=== PATIENT | male | born 1975 | race Caucasian/White ===

== ENCOUNTER 2017-12-19 19:54 | Inpatient (IN) ==
[2017-12-19] MEDS ORDERED: Sod Chloride 0.9% Inj 1,000 ML IV.SIG ONE ×3 (21:08→22:19)
--- NOTE | 2017-12-19 21:15 | ED ---
HPI General Chief Complaint: Nausea/Vomiting/Diarrhea Stated Complaint: NAUSEA/VOMITING/RT HAND SWELLING [id number] Time Seen by Provider: 12/19/17 20:50 Source: patient Mode of arrival: ambulatory Limitations: no limitations History of Present Illness HPI Narrative: The patient is a 42-year-old male who presents to the emergency department via private vehicle for multiple complaints. The patient states he was sick last week, had a productive cough at that time and was seen by his physician. The patient states he had a chest x-ray obtained that was negative and was advised that he would be okay. The patient did have decreased appetite at that time and had not been eating well. The patient then went on vacation, he is from [place], and came to [place] several days ago. The patient notes increasing symptoms including diaphoresis, chills, subjective fever, dry nonproductive cough, and nausea. The patient was at a restaurant [facility] where he had nausea and one episode of vomiting. He denies any diarrhea or abdominal pain. He denies any dysuria, frequency, or urgency. He also complains of bruising over the lateral aspect of the right hand. He cannot recall any trauma to the affected area. MD complaint: malaise and weakness Temperature Source: subjective Associated symptoms: chills, myalgias, cough, nausea and vomiting Relieving factors: nothing Exacerbating factors: nothing Treatments prior to arrival fever: none Related Data Allergies Allergy/AdvReac Type Severity Reaction Status Date / Time No Known Allergies Allergy Unverified 12/19/17 20:34 Review of Systems Except as stated in HPI: all other systems reviewed are negative Constitutional Reports chills and Reports fever(s) Cardiovascular Denies chest pain Respiratory Reports cough and Denies dyspnea Gastrointestinal Denies abdominal pain, Denies diarrhea, Reports nausea and Reports vomiting Genitourinary Denies dysuria Musculoskeletal Reports myalgias and Reports other (Bruising over the extensor lateral surface of the right hand) [facility] Social History Social History Substance History: No History of Abuse Smoking Status: Heavy tobacco smoker Tobacco Type: Cigarettes How Often Do You Have a Drink Containing Alcohol: Monthly or less Recent Travel in [facility] within the Last 8 Weeks: Yes Recent Out of Country Travel within the Last 8 Weeks: No Exam Narrative Exam Narrative: GENERAL: Awake, alert, pleasant 42-year-old male appears his stated age and appears to have Rigors. SKIN: Focused skin assessment reveals diaphoresis across the forehead. HEAD: Atraumatic. Normocephalic. EYES: Pupils equal and round. No scleral icterus. No injection or drainage. ENT: No nasal bleeding or discharge. Mucous membranes pink and moist. NECK: Trachea midline. No JVD. No meningeal signs. CARDIOVASCULAR: Regular rate and rhythm. No murmur appreciated. Heart rate in the 90s. RESPIRATORY: No accessory muscle use. Clear to auscultation. Breath sounds equal bilaterally. GASTROINTESTINAL: Abdomen soft, non-tender, nondistended. No rebound tenderness. MUSCULOSKELETAL: Ecchymosis noted over the right hand over the third, fourth, fifth, distal metacarpal area. Some old abrasions over the fifth MCP. No fluctuance noted. NEUROLOGICAL: Awake and alert. No obvious cranial nerve deficits. Motor grossly within normal limits. Normal speech. PSYCHIATRIC: Appropriate mood and affect; insight and judgment normal. Course Consultations Consultation #1: I discussed the patient with Dr. Mason who agrees with admission to the ICU. Time: 23:57 Initial Documented Vital Signs Temperature 98.5 F 12/19/17 20:35 Pulse Rate 95 H 12/19/17 20:35 Respiratory Rate 18 12/19/17 20:35 Blood Pressure 152/87 H 12/19/17 20:35 Pulse Oximetry 96 12/19/17 20:35 Last Documented Vital Signs Temperature 98.4 F 12/19/17 20:55 Pulse Rate 90 12/19/17 21:07 Respiratory Rate 20 12/19/17 20:55 Blood Pressure 166/80 H 12/19/17 20:55 Pulse Oximetry 97 12/19/17 21:08 Critical Care Time Critical Care Time: Yes Total Critical Care Time: 40 Attestation: Aggregate critical care time was 40 minutes. Time to perform other separately billable procedures was not included in the critical care time. My time did not include minutes spent treating any other patients simultaneously or on activities that did not directly contribute to the patient's treatment. The services I provided to this patient were to treat and/or prevent clinically significant deterioration that could result in: Lactic acidosis, acute renal failure, septic shock. I provided critical care services requiring my management, as noted below: Chart data review, documentation time, medication orders and management, vital sign assessments/reviewing monitor data, ordering and reviewing lab tests, ordering and interpreting/reviewing x-rays and diagnostic studies, care of the patient and discussion of the patient with the admitting physicians. Medical Decision Making MDM Narrative Medical decision making narrative: IV was established, labs are drawn and sent, the patient was placed on cardiac telemetry monitoring and continuous pulse oximetry monitoring. Blood culture and lactic acid were sent to lab. Chest x- ray was obtained. UA was sent to lab. The patient was administer 1 L of IV fluids and Zofran 4 mg ODT. The patient's white count was noted to be low at 2.8 with platelets of 44. The patient's glucose is 127. The patient's lactic acid is elevated 8.5. The patient was ordered 2 more liters of IV fluid. Chest x-ray was unremarkable, no evidence of pneumonia, therefore, CT the abdomen and pelvis was performed with IV contrast to evaluate for possible source of sepsis. The patient has a low white count, low platelets, and elevated liver function tests. 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 He denies any known tick exposures. Possibilities could include ehrlichiosis and/or Lyme disease. I did order Lyme titers and PCR. The patient was covered with doxycycline 100 mg orally. The patient does have lactic acidosis with a lactic 8.5, received 3 L of IV fluid. He does meet sepsis criteria with leukopenia, heart rate greater than 90, and elevated lactic acid. Therefore, the patient will be admitted to the intensive care unit. I discussed the patient with Dr. Mason who agrees with admission. Differential Diagnosis Differential Diagnosis: Differential diagnosis includes sepsis, pneumonia, influenza, viral syndrome, bacteremia, septicemia, fight bite, ehrlichiosis, Lyme disease. Lab Data Lab results narrative: The patient's white count is low at 2.8. Platelets are low at 44. The patient's lactic acid is elevated at 8.5. LFTs are elevated, AST greater than ALT. Result diagrams: 12/19/17 21:00 12/19/17 21:00 Lab Results 12/19/17 12/19/17 12/19/17 Range/Units 21:00 21:00 21:20 CBC w Diff Slide review pending WBC 2.8 L (4.0-11.0) th/mm3 RBC 4.75 (4.50-5.90) mil/mm3 Hgb 15.8 (13.0-17.0) gm/dL Hct 45.2 (39.0-51.0) % MCV 95.0 (80.0-100.0) fL MCH 33.3 (27.0-34.0) pg MCHC 35.0 (32.0-36.0) % RDW 12.6 (11.6-17.2) % Plt Count 44 L (150-450) th/mm3 MPV 8.0 (7.0-11.0) fL Neut % (Auto) 72.5 H (16.0-70.0) % Lymph % (Auto) 18.3 (9.0-44.0) % [place] % (Auto) 8.6 H (0.0-8.0) % Eos % (Auto) 0.0 (0.0-4.0) % Baso % (Auto) 0.6 (0.0-2.0) % Neut # (Auto) 2.1 (1.8-7.7) th/mm3 Lymph # (Auto) 0.5 L (1.0-4.8) th/mm3 [place] # (Auto) 0.2 (0.0-0.9) th/mm3 Eos # (Auto) 0.0 (0.0-0.4) th/mm3 Baso # (Auto) 0.0 (0.0-0.2) th/mm3 WBC Differential . Diff Scan Auto diff confirmed Differential Comment . Platelet Estimate Low L (Normal) Platelet Morphology Normal (Normal) Sodium 144 (136-145) meq/L Potassium 4.0 (3.5-5.1) meq/L Chloride 105 (98-107) meq/L Carbon Dioxide 23.0 (21.0-32.0) meq/L Anion Gap 16 H (5-15) meq/L BUN 10 (7-18) mg/dL Creatinine 0.85 (0.60-1.30) mg/dL Estimated GFR Greater than 89 (>89) mL/min Random Glucose 127 H (74-106) mg/dL Lactic Acid 8.5 H* (0.4-2.0) mmol/L Calcium 8.9 (8.5-10.1) mg/dL Magnesium 1.8 (1.5-2.5) mg/dL Total Bilirubin 1.9 H (0.2-1.0) mg/dL AST 302 H (15-37) U/L ALT 130 H (12-78) U/L Alkaline Phosphatase 74 (45-117) U/L Total Protein 9.0 H (6.4-8.2) g/dL Albumin 4.3 (3.4-5.0) g/dL Lipase 174 (73-393) U/L Urine Color (Yellw/Straw) Urine Clarity (Clear) Urine pH (5.0-8.5) Ur Specific [place] (1.002-1.035) Urine Protein (Neg-Trace) mg/dL Urine Glucose (UA) (Negative) mg/dL Urine Ketones (Negative) mg/dL Urine Occult Blood (Negative) Urine Nitrate (Negative) Urine Bilirubin (Negative) Urine Urobilinogen (Less than 2) mg/dL Ur Leukocyte Esterase (Negative) Ur Squamous Epith Cells (0-5) /hpf Hyaline Casts (0-3) /lpf Micro UA Comment Urine Culture Comments 12/19/17 Range/Units 22:50 CBC w Diff WBC (4.0-11.0) th/mm3 RBC (4.50-5.90) mil/mm3 Hgb (13.0-17.0) gm/dL Hct (39.0-51.0) % MCV (80.0-100.0) fL MCH (27.0-34.0) pg MCHC (32.0-36.0) % RDW (11.6-17.2) % Plt Count (150-450) th/mm3 MPV (7.0-11.0) fL Neut % (Auto) (16.0-70.0) % Lymph % (Auto) (9.0-44.0) % [place] % (Auto) (0.0-8.0) % Eos % (Auto) (0.0-4.0) % Baso % (Auto) (0.0-2.0) % Neut # (Auto) (1.8-7.7) th/mm3 Lymph # (Auto) (1.0-4.8) th/mm3 [place] # (Auto) (0.0-0.9) th/mm3 Eos # (Auto) (0.0-0.4) th/mm3 Baso # (Auto) (0.0-0.2) th/mm3 WBC Differential Diff Scan Differential Comment Platelet Estimate (Normal) Platelet Morphology (Normal) Sodium (136-145) meq/L Potassium (3.5-5.1) meq/L Chloride (98-107) meq/L Carbon Dioxide (21.0-32.0) meq/L Anion Gap (5-15) meq/L BUN (7-18) mg/dL Creatinine (0.60-1.30) mg/dL Estimated GFR (>89) mL/min Random Glucose (74-106) mg/dL Lactic Acid (0.4-2.0) mmol/L Calcium (8.5-10.1) mg/dL Magnesium (1.5-2.5) mg/dL Total Bilirubin (0.2-1.0) mg/dL AST (15-37) U/L ALT (12-78) U/L Alkaline Phosphatase (45-117) U/L Total Protein (6.4-8.2) g/dL Albumin (3.4-5.0) g/dL Lipase (73-393) U/L Urine Color Yellow (Yellw/Straw) Urine Clarity Clear (Clear) Urine pH 6.0 (5.0-8.5) Ur Specific [place] Greater/equal 1.030 (1.002-1.035) Urine Protein 100 H (Neg-Trace) mg/dL Urine Glucose (UA) Negative (Negative) mg/dL Urine Ketones 80 or greater (Negative) mg/dL Urine Occult Blood Negative (Negative) Urine Nitrate Negative (Negative) Urine Bilirubin Negative (Negative) Urine Urobilinogen 1.0 (Less than 2) mg/dL Ur Leukocyte Esterase Negative (Negative) Ur Squamous Epith Cells 0-5 (0-5) /hpf Hyaline Casts 0-3 (0-3) /lpf Micro UA Comment Culture not ind Urine Culture Comments Culture not ind Imaging Data Radiologist's impression: ITS Impressions Chest X-Ray 12/19/17 21:08 CONCLUSION: No acute cardiopulmonary process. Hand X-Ray 12/19/17 21:34 CONCLUSION: Soft tissue swelling. Abdomen/Pelvis CT 12/19/17 22:19 CONCLUSION: 1. Diffuse abnormal appearance the liver with hepatic steatosis and suspected cirrhosis. 2. Recanalized lesion at the periumbilical vein consistent with portal hypertension. 3. Splenomegaly likely secondary to the portal hypertension. Discharge Plan Discharge Disposition Patient Disposition: 30 Still Patient Discharge Condition Condition: Stable Discharge Details Discharge Problem: Sepsis, Leukopenia, Thrombocytopenia, Acidosis, lactic Physicians Team ED Provider: Steffen Betancur Primary Care Provider: NON STAFF,PROVIDER Discharge Interventions Interventions: Vital Signs Last Done: 12/19/17 20:55 Status ED Status: Admitted Patient
[2017-12-19 21:42] LABS: Baso % (Auto) 0.6 % (0.0-2.0); Hematocrit 45.2 % (39.0-51.0); Hemoglobin 15.8 gm/dL (13.0-17.0); Lymph # (Auto) 0.5 th/mm3 (1.0-4.8); Lymph % (Auto) 18.3 % (9.0-44.0); Mean Corpuscular Hemoglobin 33.3 pg (27.0-34.0); Mono # (Auto) 0.2 th/mm3 (0.0-0.9); Mono % (Auto) 8.6 % (0.0-8.0); Neut # (Auto) 2.1 th/mm3 (1.8-7.7); Neut % (Auto) 72.5 % (16.0-70.0); Platelet Count 44 th/mm3 (150-450); Red Blood Count 4.75 mil/mm3 (4.50-5.90); Red Cell Distribution Width 12.6 % (11.6-17.2); White Blood Count 2.8 th/mm3 (4.0-11.0)
[2017-12-19 21:51] LABS: Chloride 105 meq/L (98-107); Sodium 144 meq/L (136-145)
[2017-12-19 21:54] LABS: Calcium 8.9 mg/dL (8.5-10.1)
[2017-12-19 21:55] LABS: Albumin 4.3 g/dL (3.4-5.0); Anion Gap 16 meq/L (5-15); Blood Urea Nitrogen 10 mg/dL (7-18); Glucose,Random 127 mg/dL (74-106); Lipase 174 U/L (73-393); Magnesium 1.8 mg/dL (1.5-2.5)
[2017-12-19 21:57] LABS: Alanine Aminotransferase 130 U/L (12-78); Aspartate Aminotransferase 302 U/L (15-37); Glomerular Filtration Rate Greater Than 89 mL/min (>89)
[2017-12-19 22:00] LABS: Alkaline Phosphatase 74 U/L (45-117)
[2017-12-19 22:08] LABS: Platelet Morphology Normal (Normal)
[2017-12-19] MEDS ORDERED: Piperacil/Tazo 4.5 GM Premix 4.5 GM/100 ML BAG IV.SIG ONE (22:19)
[2017-12-19] MEDS ORDERED: Vancomycin Inj 1 GM/200 ML PIGGYBACK IV.SIG ONE (22:19)
--- NOTE | 2017-12-19 22:25 | XR ---
EXAM DATE: 12/19/2017 9:18 PM EDT AGE/SEX: 42 years / Male INDICATIONS: Fever, cough. CLINICAL DATA: This is the patient's initial encounter. Patient reports that signs and symptoms have been present for 1 day and indicates a pain score of 0/10. MEDICAL/SURGICAL HISTORY: None. None. COMPARISON: No prior exams available for comparison. FINDINGS: A single AP view of the chest demonstrates the lungs to be symmetrically aerated without evidence of mass, infiltrate or effusion. The cardiomediastinal contours are unremarkable. Osseous structures a re intact. CONCLUSION: No acute cardiopulmonary process. Electronically signed by: Eduard Saunders MD 12/19/2017 10:24 PM EDT
--- NOTE | 2017-12-19 22:43 | XR ---
EXAM DATE: 12/19/2017 9:59 PM EDT AGE/SEX: 42 years / Male INDICATIONS: Right lateral hand swelling, no known trauma. CLINICAL DATA: This is the patient's initial encounter. Patient reports that signs and symptoms have been present for 4 - 6 days and indicates a pain score of 3/10. MEDICAL/SURGICAL HISTORY: None. None. COMPARISON: No prior exams available for comparison. FINDINGS: A single AP image of the right hand was obtained. There does appear to be soft tissue swelling at the medial aspect of the hand adjacent to the fifth metacarpal. A fracture is not seen on this single AP view. CONCLUSION: Soft tissue swelling. Electronically signed by: Eduard Saunders MD 12/19/2017 10:41 PM EDT
[2017-12-19 23:04] LABS: Clarity,Urine Clear (Clear); Color,Urine Yellow (Yellw/Straw); Glucose,Urine (UA) Negative (Negative); Leukocyte Esterase,Urine Negative (Negative); Nitrite,Urine Negative (Negative); Specific Gravity,Urine Greater/Equal 1.030 (1.002-1.035)
[2017-12-19 23:11] LABS: Bilirubin,Urine Negative (Negative)
[2017-12-19 23:13] LABS: Hyaline Casts,Urine 0-3 /lpf (0-3); Squamous Epithelial Cell,Urine 0-5 /hpf (0-5)
--- NOTE | 2017-12-19 23:34 | CT ---
EXAM DATE: 12/19/2017 11:29 PM EDT AGE/SEX: 42 years / Male INDICATIONS: Nausea. Vomiting. Diarrhea. Malaise and weakness. CLINICAL DATA: This is the patient's initial encounter. Patient reports that signs and symptoms have been present for 1 day and indicates a pain score of 8/10. MEDICAL/SURGICAL HISTORY: None. None. ORAL CONTRAST: No oral contrast ingested. RADIATION DOSE: 16.93 CTDI (mGy) COMPARISON: No prior exams available for comparison. TECHNIQUE: Multiple contiguous axial images were obtained through the abdomen and pelvis following b olus infusion of 60 ml Omnipaque 350 (iohexol) nonionic water-soluble contrast as a single exam dos e. No oral contrast ingested. Using automated exposure control and adjustment of the mA and/or kV ac cording to patient size, radiation dose was kept as low as reasonably achievable to obtain optimal di agnostic quality images. DICOM format image data is available electronically for review and comparis on. FINDINGS: Lower Lungs: The visualized lower lungs are clear. Liver: There is decreased attenuation to the liver. The liver appears heterogeneous. There is enlarge ment and hypertrophy of the left lobe. The liver has a nodular surface. There is a recanalized perium bilical vein. Spleen: The spleen is enlarged. Pancreas: Unremarkable without mass or calcification. Kidneys: Normal in size and shape. No evidence of mass or hydronephrosis. Adrenal Glands: Unremarkable. Aorta: The aorta and proximal iliac vessels are grossly unremarkable without aneurysmal dilation. Bowel/Mesentery: The bowel loops are grossly unremarkable. The cecum and sigmoid colon have a normal configuration. Abdominal Wall: Intact. Retroperitoneum: Small normal-sized lymph nodes are seen throughout the retroperitoneum. Bladder: Contours are smooth. Reproductive Organs: No abnormal masses or calcifications seen. Inguinal: The inguinal region is unremarkable without evidence of adenopathy. Bony Structures: Unremarkable. CONCLUSION: 1. Diffuse abnormal appearance the liver with hepatic steatosis and suspected cirrhosis. 2. Recanalized lesion at the periumbilical vein consistent with portal hypertension. 3. Splenomegaly likely secondary to the portal hypertension. Electronically signed by: Eduard Saunders MD 12/19/2017 11:33 PM EDT
[2017-12-20] MEDS ORDERED: Morphine Sulfate Inj 2 MG/ML Vial IV.PUSH PRN (00:05)
[2017-12-20] MEDS ORDERED: Bisacodyl 10 MG Supp RECTAL PRN (00:05)
[2017-12-20] MEDS ORDERED: Vancomycin Consult Pharmacy 1 EACH OTHER SCH (01:00)
[2017-12-20] MEDS: Sod Chloride 0.9% Inj 1,000 ML IV.CONT SCH ×2 (02:19→17:11)
[2017-12-20] MEDS ORDERED: Chlorhexidine Gluconate 2% 1 Pack (2 Cloths) TOPICAL PRN (04:00)
[2017-12-20] MEDS: Piperacil/Tazo 4.5 GM Premix 4.5 GM/100 ML BAG IV.SIG SCH ×2 (04:36→14:01)
[2017-12-20] MEDS ORDERED: Vancomycin Inj 1,250 MG in Sodium Chlor 0.9% Inj 250 ML IV.SIG SCH ×2 (06:00→17:00)
[2017-12-20 06:05] LABS: Baso % (Auto) 0.7 % (0.0-2.0); Lymph # (Auto) 0.3 th/mm3 (1.0-4.8); Mean Corpuscular HGB Conc 34.2 % (32.0-36.0); Mean Corpuscular Hemoglobin 33.1 pg (27.0-34.0); Mean Corpuscular Volume 96.8 fL (80.0-100.0); Mean Platelet Volume 7.2 fL (7.0-11.0); Mono # (Auto) 0.2 th/mm3 (0.0-0.9); Mono % (Auto) 10.8 % (0.0-8.0); Neut # (Auto) 1.8 th/mm3 (1.8-7.7); Neut % (Auto) 76.5 % (16.0-70.0); Platelet Count 34 th/mm3 (150-450); Red Blood Count 3.82 mil/mm3 (4.50-5.90); Red Cell Distribution Width 12.3 % (11.6-17.2); White Blood Count 2.3 th/mm3 (4.0-11.0)
[2017-12-20 06:14] LABS: Chloride 109 meq/L (98-107); Potassium 3.4 meq/L (3.5-5.1); Sodium 143 meq/L (136-145)
[2017-12-20 06:28] LABS: Hemoglobin 12.7 gm/dL (13.0-17.0)
[2017-12-20 06:35] LABS: Anion Gap 13 meq/L (5-15); Blood Urea Nitrogen 10 mg/dL (7-18); Calcium 7.6 mg/dL (8.5-10.1); Carbon Dioxide 21.5 meq/L (21.0-32.0); Creatine Kinase 362 U/L (39-308); Glomerular Filtration Rate Greater Than 89 mL/min (>89); Glucose,Random 150 mg/dL (74-106); Magnesium 1.5 mg/dL (1.5-2.5); Phosphorus 3.2 mg/dL (2.5-4.9)
[2017-12-20 06:51] LABS: Platelet Morphology Normal (Normal); RBC Morphology Normal (Normal)
[2017-12-20 06:54] LABS: CKMB Percent 0.4 % (0.0-4.0); Creatine Kinase MB 1.3 ng/mL (0.5-3.6)
--- NOTE | 2017-12-20 08:59 | P.HPCC ---
History of Present Illness Service: critical care Primary Care Physician: PROVIDER NON STAFF Chief Complaint: shortness of breath History of Present Illness: 42-year-old male from [place] with a medical history significant for alcohol induced pancreatitis who was bit by her bunny on December 09, 2017 while mowing his lawn when he tried to move it away from under the more. Few days later he started having nausea vomiting and a productive cough. He saw his primary care physician who got a chest x-ray which was read as clear. Subsequently he continued to have episodic nausea vomiting with chills and profuse sweating. He flew to [place] to meet his parents and was at a restaurant on 12/19 that he had another episode of nausea vomiting with profuse chills subsequently and diaphoresis. He tried laying down at home however due to progressively feeling worse came to the ER at [facility] when he was noted to have a fever with elevated LFTs, pancytopenia and lactic acidosis. After obtaining cultures and imaging studies he was initiated on empiric antibiotic coverage for presumed sepsis. Patient was accepted for admission by critical care medicine service. When I evaluated the patient following his arrival to the ICU he was resting in bed on room air and did not appear to be in any acute distress. She denied any chest pain shortness of breath or abdominal pain currently. He denied any diarrhea rectal bleeding melena. He did have profuse sweating in the ER earlier prior to his arrival to the ICU. He did notice redness and swelling over dorsum of his right hand at the site of the rabbit bite. Past surgical history: Strabismus, nose surgery Past medical history: Depression, anxiety. Prior history of alcohol abuse however quit about a year and a half ago. Previous episodes of pancreatitis related to alcohol use. Inpatient Certification: I certify that the inpatient services were ordered in accordance with Medicare regulations governing the order. This includes certification that hospital inpatient services are reasonable and necessary and in the case of services not specified as inpatient-only under 42 CFR 419.22(n), that they are appropriately provided as inpatient services in accordance to with the 2-midnight benchmark under 43 CFR 412.3(e) Estimated Total Length of Stay (Days): 8 Plans for Post Hospital Care: Not yet determined Review of Systems Per HPI All other systems reviewed negative except as stated in HPI PMFSH - History History Provided By: Patient - Medical History Medical History: Medical History (Last Reviewed 12/21/17 @ 07:33 by Alis Kurtz) Anxiety Depression Pancreatitis - Tobacco History Tobacco Use In Past 30 Days: Yes Smoking Status: Heavy tobacco smoker Tobacco Type: Cigarettes - Alcohol History How Often Do You Have a Drink Containing Alcohol: Monthly or less - Substance Use History Substance History: No History of Abuse - Travel History Recent Travel in the [place] Within the Last 8 Weeks: Yes Recent Travel Out of the Country Within the Last 8 Weeks: No - Immunization History Tetanus Immunization: Unsure Hx Influenza Vaccine This Season: No Medications and Allergies Active Medications: Active Medications Al Hydroxide/Mg Hydroxide (Milk Of Stella [place]) 30 ml PO Q12H PRN PRN Reason: Mild Constipation Albuterol (Albuterol Neb (Prn)) 2.5 mg NEB Q2HR NEB PRN PRN Reason: SHORTNESS OF BREATH/WHEEZING Albuterol (Duoneb Neb (Samy)) 1 ampul NEB Q6HR WHILE AWAKE NEB [facility] Bisacodyl (Dulcolax Supp) 10 mg RECTAL DAILY PRN PRN Reason: SEVERE CONSITIPATION Chlorhexidine Gluconate (Chlorhexidine 2% Cloth) 3 pack TOPICAL DAILY@0400 [facility] Stop: 12/25/17 03:59 Chlorhexidine Gluconate (Chlorhexidine 2% Cloth) 3 pack TOPICAL DAILY@0400 PRN PRN Reason: Extra cloth needed Stop: 12/25/17 03:59 Citalopram Hydrobromide (Celexa) 20 mg PO DAILY [facility] Folic Acid (Folic Acid) 1 mg PO DAILY [facility] Hydroxyzine HCl (Atarax) 25 mg PO TID PRN PRN Reason: Anxiety Sodium Chloride (Ns Inj) 1,000 mls @ 84 mls/hr IV.CONT .[id number] [facility] Last Admin: 12/20/17 02:19 Dose: 84 mls/hr Piperacillin/Tazobactam/Dextrose (Zosyn 4.5 Gm Premix) 4.5 gm in 100 mls @ 200 mls/hr IV.SIG Q6H [facility] Last Admin: 12/20/17 04:36 Dose: 200 mls/hr Doxycycline Hyclate 100 mg/ (Sodium Chloride) 100 mls @ 100 mls/hr IV.SIG Q12H [facility] Last Infusion: 12/20/17 03:20 Dose: Infused Pharmacy Profile Note (Vancomycin Consult Pharmacy) 0 mls @ 0 mls/hr OTHER UNSCH [facility] Vancomycin HCl 1,250 mg/ (Sodium Chloride) 262.5 mls @ 250 mls/hr IV.SIG Q8HR [facility] Clindamycin/Sodium Chloride (Cleocin 600 Mg/Ns Premix) 600 mg in 50 mls @ 100 mls/hr IV.SIG Q8H [facility] Stop: 12/21/17 00:59 Lactulose (Lactulose Liq) 30 ml PO DAILY PRN PRN Reason: SEVERE CONSITIPATION Miscellaneous Information ([facility] Ordered Lab Info) 0 each OTHER ONCE@ 2144 ONE Stop: 12/20/17 21:46 Morphine Sulfate (Morphine Inj) 2 mg IV.PUSH Q2H PRN PRN Reason: PAIN SCALE 6 TO 10 Multivitamins (Theragran) 1 tab PO DAILY [facility] Ondansetron HCl (Zofran Inj) 4 mg IV.PUSH Q6H PRN PRN Reason: NAUSEA OR VOMITING Pantoprazole Sodium (Protonix Inj) 40 mg IV.PUSH DAILY [facility] Prochlorperazine Edisylate (Compazine Inj) 5 mg IV.PUSH Q4H PRN PRN Reason: BREAKTHROUGH NAUSEA Last Admin: 12/20/17 04:36 Dose: 5 mg Senna/Docusate Sodium (Tracy-Colace) 1 tab PO BID [facility] Sennosides (Senokot) 17.2 mg PO Q12H PRN PRN Reason: Moderate Constipation Sodium Chloride (Ns Flush) 2 ml IV.FLUSH BID [facility] Sodium Chloride (Ns Flush) 2 ml IV.FLUSH PRN PRN PRN Reason: FLUSH AFTER USING IV ACCESS Thiamine HCl (Vitamin B1) 100 mg PO BID [facility] Trazodone HCl (Desyrel) 50 mg PO DAILY [facility] Allergies Allergy/AdvReac Type Severity Reaction Status Date / Time No Known Allergies Allergy Unverified 12/19/17 20:34 Home Medications Medication Instructions Recorded Confirmed Type citalopram [Celexa] 20 mg PO DAILY 12/20/17 12/20/17 History hydroxyzine HCl 25 mg PO BID 12/20/17 12/20/17 History trazodone 50 mg PO HS PRN 12/20/17 12/20/17 History Results - Labs CBC & Chem 7: 12/22/17 04:27 12/22/17 04:27 Labs: Short CBC 12/19/17 12/20/17 Range/Units 21:00 05:53 WBC 2.8 L 2.3 L (4.0-11.0) th/mm3 Hgb 15.8 12.7 L D (13.0-17.0) gm/dL Hct 45.2 37.0 L (39.0-51.0) % Plt Count 44 L 34 L (150-450) th/mm3 BMP 12/19/17 12/20/17 21:00 05:53 Sodium 144 143 Potassium 4.0 3.4 L Chloride 105 109 H Carbon Dioxide 23.0 21.5 BUN 10 10 Creatinine 0.85 0.65 Calcium 8.9 7.6 L D Cardiac Enzymes 12/20/17 Range/Units 05:53 Total Creatine Kinase 362 H (39-308) U/L CK-MB (CK-2) 1.3 (0.5-3.6) ng/mL Liver Function 12/19/17 Range/Units 21:00 Total Bilirubin 1.9 H (0.2-1.0) mg/dL AST 302 H (15-37) U/L ALT 130 H (12-78) U/L Alkaline Phosphatase 74 (45-117) U/L Albumin 4.3 (3.4-5.0) g/dL Urine 12/19/17 Range/Units 22:50 Urine Color Yellow (Yellw/Straw) Urine Clarity Clear (Clear) Urine pH 6.0 (5.0-8.5) Ur Specific [place] Greater/equal 1.030 (1.002-1.035) Urine Protein 100 H (Neg-Trace) mg/dL Urine Glucose (UA) Negative (Negative) mg/dL - Imaging Impressions Chest X-Ray 12/19/17 21:08 CONCLUSION: No acute cardiopulmonary process. Hand X-Ray 12/19/17 21:34 CONCLUSION: Soft tissue swelling. Abdomen/Pelvis CT 12/19/17 22:19 CONCLUSION: 1. Diffuse abnormal appearance the liver with hepatic steatosis and suspected cirrhosis. 2. Recanalized lesion at the periumbilical vein consistent with portal hypertension. 3. Splenomegaly likely secondary to the portal hypertension. Exam Vital signs: Vital Signs 12/19/17 20:35 12/19/17 20:55 12/19/17 21:07 Temperature 98.5 F 98.4 F Pulse Rate 95 H 91 H 90 Respiratory Rate 18 20 Blood Pressure 152/87 H 166/80 H Pulse Oximetry 96 97 12/19/17 21:08 12/19/17 21:55 12/19/17 22:53 Temperature Pulse Rate 88 86 Respiratory Rate 18 18 Blood Pressure 162/89 H 150/86 H Pulse Oximetry 97 98 97 12/19/17 23:55 12/20/17 00:05 12/20/17 00:30 Temperature Pulse Rate 88 87 Respiratory Rate 18 18 Blood Pressure 135/81 Pulse Oximetry 95 99 12/20/17 00:53 12/20/17 01:04 12/20/17 01:55 Temperature 99.0 F Pulse Rate 96 H 88 Respiratory Rate 18 18 Blood Pressure 141/86 H 136/68 Pulse Oximetry 99 98 97 12/20/17 02:55 12/20/17 03:47 12/20/17 04:00 Temperature 97.5 F L Pulse Rate 86 75 88 Respiratory Rate 18 16 16 Blood Pressure 118/69 125/75 Pulse Oximetry 96 12/20/17 07:05 12/20/17 07:19 12/20/17 07:22 Temperature 98.6 F 98.6 F Pulse Rate 88 84 80 Respiratory Rate 16 16 Blood Pressure 132/78 128/78 Pulse Oximetry 98 Intake & Output 12/19/17 12/20/17 12/20/17 18:59 06:59 18:59 Intake Total 3300 / 3300 Balance 3300 / 3300 Weight 94.3 kg Intake: IV 3300 / 3300 Doxy 100 Inj 100 MG In NS Inj 100 / 100 100 ML @ 100 mls/hr IV.SIG Q12H [facility] Rx#:[id number] NS Inj 1,000 ML @ Wide Open IV. 3000 / 3000 SIG BOLUS ONE Rx#:[id number] Vancomycin Inj 1 gm In 200 ml @ 200 / 200 200 mls/hr IV.SIG ONCE ONE Rx# :[id number] Narrative: HEENT/Neuro: No pallor or icterus, tongue moist, TAY, Awake alert oriented 3 , minimal tremor noted bilaterally upper extremities. Nonfocal grossly, moving all 4 extremities Neck: No JVD Chest/pulmonary: CTA bilaterally Cardiovascular: S1-S2 regular no gallop or murmur GI/abdomen: Soft, nontender, bowel sounds present Extremities: Warm bilaterally, no edema. Erythema, warmth and swelling with some discoloration noted over dorsum of right hand with 2 bite beavers with scabbing, no drainage. Caprini VTE Risk Assessment Caprini VTE Risk Assessment: Moderate/High Risk (score >= 2) VTE Pharmacological Exception Reason: Thrombocytopenia (<50) Caprini Risk Assessment Model: Point Value = 1 Point Value = 2 Point Value = 3 Point Value = 5 Age 41-60 Minor surgery BMI > 25 kg/m2 Swollen legs Varicose veins or History of unexplained or recurrent spontaneous Oral contraceptives or hormone replacement Sepsis (< 1 month) Serious lung disease, including pneumonia (< 1 month) Abnormal pulmonary function Acute myocardial infarction Congestive heart failure (< 1 month) History of inflammatory bowel disease Medical patient at bed rest Age 61-74 Arthroscopic surgery Major open surgery (> 45 min) Laparoscopic surgery (> 45 min) Malignancy Confined to bed (> 72 hours) Immobilizing plaster cast Central venous access Age >= 75 History of VTE Family history of VTE Factor V Leiden Prothrombin [id number] Lupus anticoagulant Anticardiolipin antibodies Elevated serum homocysteine Heparin-induced thrombocytopenia Other congenital or acquired thrombophilia Stroke (< 1 month) Elective arthroplasty Hip, pelvis, or leg fracture Acute spinal cord injury (< 1 month) Prophylaxis Regimen: Total Risk Factor Score Risk Level Prophylaxis Regimen 0-1 Low Early ambulation 2 Moderate Order ONE of the following: *Sequential Compression Device (SCD) *Heparin 5000 units SQ BID 3-4 Higher Order ONE of the following medications: *Heparin 5000 units SQ TID *Enoxaparin/Lovenox 40 mg SQ daily (WT < 150 kg, CrCl > 30 mL/min) *Enoxaparin/Lovenox 30 mg SQ daily (WT < 150 kg, CrCl > 10-29 mL/min) *Enoxaparin/Lovenox 30 mg SQ BID (WT < 150 kg, CrCl > 30 mL/min) AND/OR *Sequential Compression Device (SCD) 5 or more Highest Order ONE of the following medications: *Heparin 5000 units SQ TID (Preferred with Epidurals) *Enoxaparin/Lovenox 40 mg SQ daily (WT < 150 kg, CrCl > 30 mL/min) *Enoxaparin/Lovenox 30 mg SQ daily (WT < 150 kg, CrCl > 10-29 mL/min) *Enoxaparin/Lovenox 30 mg SQ BID (WT < 150 kg, CrCl > 30 mL/min) AND *Sequential Compression Device (SCD) Assessment and Plan - Assessment and Plan Plan: 42-year-old male with: Sepsis Rabbit bite (December 09) Elevated LFTs Splenomegaly possibly related to chronic liver disease with portal hypertension versus infectious process Pancytopenia Lactic acidosis Suspected cellulitis versus zoonosis Plan: Neuro: Follow neuro status. Continue antidepressant and antianxiety medications including citalopram/trazodone. Cardiovascular: IV hydration, watch for hypotension. Lactic acid has normalized. Pulmonary: Supplemental O2 as needed. Bronchodilators as needed. Currently on room air GI/liver: Elevated LFTs noted. GI consult requested for further evaluation. CT abdomen pelvis shows fatty infiltration of liver with splenomegaly suggesting portal hypertension. Renal/: IV hydration, strict intake output, monitor and replete electrolytes, follow BN creatinine ID: Follow-up cultures. Suspect rabbit bite induced cellulitis versus zoonosis causing her symptoms. Patient denies any tick bites. On IV vancomycin/Zosyn/ doxycycline for empiric antibiotic coverage. Added clindamycin IV 3 doses. ID consult requested for further evaluation. X-ray right hand did not reveal any fractures. Endocrine: Watch for hyperglycemia, SSI for glycemic control if needed Prophylaxis: Protonix/SCDs. No heparin or Lovenox in view of thrombocytopenia.
[2017-12-20] MEDS ORDERED: Clindamycin 600 mg/NS Premix 600 MG/50 ML PIGGYBACK IV.SIG SCH (09:00)
[2017-12-20] MEDS: Senna/Docusate Sodium 8.6/50 MG Tablet PO SCH ×2 (09:35→20:41)
[2017-12-20] MEDS: Folic Acid 1 MG Tablet PO SCH (09:36)
[2017-12-20] MEDS: Pantoprazole Inj 40 MG Vial IV.PUSH SCH (09:37)
[2017-12-20] MEDS: traZODone 50 MG Tablet PO SCH (09:42)
[2017-12-20] MEDS: Citalopram 20 MG Tablet PO SCH (09:43)
[2017-12-20] MEDS: Chlorhexidine Gluconate 2% 1 Pack (2 Cloths) TOPICAL SCH (09:46)
[2017-12-20] MEDS: Clindamycin 600 mg/NS Premix 600 MG/50 ML PIGGYBACK IV.SIG SCH ×2 (12:06→18:38)
[2017-12-20 13:12] LABS: Hepatitits B Surface Antigen Nonreactive (Nonreactive)
[2017-12-20 13:38] LABS: Hepatitis A IgM Antibody Nonreactive (Nonreactive)
--- NOTE | 2017-12-20 17:05 | MB ---
cc: Dionne Mckeon MD, Nimish K MD DATE: 12/20/2017 PHYSICIAN: Bobby Mcneal MD REASON FOR CONSULTATION: Elevated liver function tests, possible liver cirrhosis. HISTORY OF PRESENT ILLNESS: Mr. De Anda is a 42-year-old gentleman who is visiting from [place]. He has previous history of alcohol disease and alcohol-induced pancreatitis. He states he has been abstinent from alcohol for over a year and a half. He states he was never told previously that he had liver cirrhosis. He basically presented with fever, chills, nausea, vomiting and malaise. He states his problem started about 2 weeks ago when, while mowing his lawn, he was bit by a wild rabbit. He said he received 2 bites that seemed to get better on its own, but as of yesterday his right hand is very swollen and discolored at the site of the bite and he developed these symptoms. GI Service has been consulted for elevated liver function tests. PAST MEDICAL HISTORY: Strabismus, nose surgery, depression, anxiety. SOCIAL HISTORY: Previous alcohol use. No tobacco. No alcohol reported at this time. FAMILY HISTORY: Noncontributory. MEDICATIONS: Include: 1. Albuterol. 2. Bisacodyl. 3. Celexa. 4. Folic acid. 5. Atarax. 6. Zosyn. 7. Doxycycline 8. Vancomycin. 9. Clindamycin 10. Lactulose. 11. Morphine. 12. Pantoprazole. 13. Zofran. 14. Thiamine. 15. Trazodone. PHYSICAL EXAMINATION: GENERAL: Reveals a well-nourished man in no apparent distress. VITAL SIGNS: Stable. HEAD AND NECK: Slightly icteric sclerae. CHEST: Bilateral air entry with rales. ABDOMEN: Soft, nontender. No hepatomegaly. Minimal splenomegaly appreciated. CENTRAL NERVOUS SYSTEM: Exam nonfocal. RECTAL: Deferred at this time. LABORATORY DATA: Reveal white cell count of 2.3, hemoglobin 12.7. Creatinine 0.65. Lactic acid 1.8, total bilirubin 0.9, AST 302, ALT 130, ammonia 34. IMAGING STUDIES: A CT of the abdomen and pelvis shows hepatic steatosis, suspected cirrhosis, portal hypertension, splenomegaly. IMPRESSION: Liver disease, probably secondary to alcohol. The patient's hepatitis serologies are negative. RECOMMENDATIONS: I would recommend an ultrasound of the liver. Check autoimmune panel. At this time the main problem appears to be sepsis, probably from the patient's previous bite. [place]are[place] is suspected. Infectious Disease has been consulted. Would also recommend consulting Hand Surgery. Repeat liver function tests tomorrow. will follow from tomorrow. Thank you for this referral. MD DAKSHA Sahni/MELINDA , 04:41 PM , 05:03 PM
[2017-12-20 17:19] LABS: Albumin 3.3 g/dL (3.4-5.0)
[2017-12-20] MEDS ORDERED: ceFAZolin Inj 2,000 MG in Sodium Chlor 0.9% Inj 80 ML IV.SIG SCH (19:54)
[2017-12-20] MEDS ORDERED: Piperacil/Tazo 4.5 GM Premix 4.5 GM/100 ML BAG IV.SIG SCH (20:00)
--- NOTE | 2017-12-20 20:13 | P.CON ---
History of Present Illness Service: INFECTIOUS DISEASE Consult date: 12/20/17 Requesting Physician: Bobby Mcneal Reason for Consult: SEPSIS Primary Care Provider: PROVIDER NON STAFF Chief Complaint: NAUSEA FEVER CHILLS History of Present Illness: 42 YR OLD MALE HERE ON VACATION FROM [place]. HE ARRIVED TUESDAY EVENING. HE IS VISITING HIS PARENTS WITH HIS . PT APPARENTLY WAS BITTEN TO HIS RIGHT HAND November BY A WILD BABY RABBIT. HE DID NOT THINK MUCH OF THE BITE INITIALLY HOWEVER DID NOTICE SOME SWELLING TO THE RIGHT HAND. THE NEXT DAY HE DID HAVE NAUSEA WITH VOMITING 3-4 TIMES HOWEVER HE THOUGHT IT WAS RELATED TO HIS DIET. HOWEVER December HE HAD A LOT OF N/V AND FEVER / CHILLS WITH SOB. HE SAW HIS PCP THE FOLLOWING DAY AND HAD A CXR WHICH WAS NORMAL. HE FELT OK UNTIL YESTERDAY WHEN HE HAD INCREASED FEVER / SWEATS/ CHILLS/ WITH N/V AND HIS RIGHT HAND HAD INCREASED SWELLING AND BRUISING. HE IS ALSO HAVING SHAKES TO THE RIGHT HAND. ID IS CONSULTED. HE IS STARTED ON DOXYCYCLINE WITH ANCEF AND VANCOMYCIN. Review of Systems Constitutional: Reports body ache(s), Reports chills, Reports fatigue, Reports fever(s), Reports lack of energy, Reports malaise, Reports night sweats, Reports weakness, Denies increased appetite Eyes: Denies blurry vision, Denies floaters, Denies sensitivity to light Ears, Nose, Mouth, and Throat: Denies bleeding gums, Denies dizziness, Denies dry mouth, Denies hearing loss, Denies nasal congestion, Denies neck lump Cardiovascular: Reports shortness of breath, Denies chest pain, Denies fast heart rate, Denies irregular heart rhythm, Denies lightheadedness, Denies rapid , pounding, or irregular heartbeat, Denies shortness of breath with activity, Denies shortness of breath when lying down Respiratory: Reports change in phlegm color, Reports chest congestion, Reports cough, Reports coughing up blood, Reports shortness of breath Gastrointestinal: Reports nausea, Reports vomiting, Denies abdominal pain Genitourinary: Denies blood in semen, Denies difficulty with ejaculations, Denies painful urination, Denies penile discharge Musculoskeletal: Denies abnormal walking Skin/Breast: Denies bleeding lesions Neurologic: Denies abnormal movements Psychiatric: Denies anxiety, Denies confusion Endocrine: Denies cold intolerance Hematologic/Lymphatic: Denies easy bleeding Allergic/Immunologic: Denies throat swelling PMFSH - History History Provided By: Patient - Medical History Medical History: Medical History (Last Reviewed 12/20/17 @ 08:19 by Jorge Avelar) Anxiety Depression Pancreatitis - Tobacco History Tobacco Use In Past 30 Days: Yes Smoking Status: Heavy tobacco smoker Tobacco Type: Cigarettes - Alcohol History How Often Do You Have a Drink Containing Alcohol: Monthly or less - Substance Use History Substance History: No History of Abuse - Travel History Recent Travel in the [place] Within the Last 8 Weeks: Yes Recent Travel Out of the Country Within the Last 8 Weeks: No - Immunization History Tetanus Immunization: Unsure Hx Influenza Vaccine This Season: No Medications and Allergies Allergies Allergy/AdvReac Type Severity Reaction Status Date / Time No Known Allergies Allergy Unverified 12/19/17 20:34 Home Medications Medication Instructions Recorded Confirmed Type citalopram [Celexa] 20 mg PO DAILY 12/20/17 12/20/17 History hydroxyzine HCl 25 mg PO BID 12/20/17 12/20/17 History trazodone 50 mg PO HS PRN 12/20/17 12/20/17 History Active Medications: Active Medications Al Hydroxide/Mg Hydroxide (Milk Of Magnfrancisco Liq) 30 ml PO Q12H PRN PRN Reason: Mild Constipation Albuterol (Albuterol Neb (Prn)) 2.5 mg NEB Q2HR NEB PRN PRN Reason: SHORTNESS OF BREATH/WHEEZING Albuterol (Duoneb Neb (Samy)) 1 ampul NEB Q6HR WHILE AWAKE NEB [facility] Last Admin: 12/20/17 19:39 Dose: 1 ampul Bisacodyl (Dulcolax Supp) 10 mg RECTAL DAILY PRN PRN Reason: SEVERE CONSITIPATION Chlorhexidine Gluconate (Chlorhexidine 2% Cloth) 3 pack TOPICAL DAILY@0400 [facility] Stop: 12/25/17 03:59 Last Admin: 12/20/17 09:46 Dose: Not Given Chlorhexidine Gluconate (Chlorhexidine 2% Cloth) 3 pack TOPICAL DAILY@0400 PRN PRN Reason: Extra cloth needed Stop: 12/25/17 03:59 Citalopram Hydrobromide (Celexa) 20 mg PO DAILY [facility] Last Admin: 12/20/17 09:43 Dose: 20 mg Folic Acid (Folic Acid) 1 mg PO DAILY [facility] Last Admin: 12/20/17 09:36 Dose: 1 mg Hydroxyzine HCl (Atarax) 25 mg PO TID PRN PRN Reason: Anxiety Last Admin: 12/20/17 09:43 Dose: 25 mg Sodium Chloride (Ns Inj) 1,000 mls @ 84 mls/hr IV.CONT .[id number] [facility] Last Admin: 12/20/17 17:11 Dose: 84 mls/hr Doxycycline Hyclate 100 mg/ (Sodium Chloride) 100 mls @ 100 mls/hr IV.SIG Q12H [facility] Last Infusion: 12/20/17 16:32 Dose: Infused Pharmacy Profile Note (Vancomycin Consult Pharmacy) 0 mls @ 0 mls/hr OTHER UNSCH [facility] Vancomycin HCl 1,250 mg/ (Sodium Chloride) 262.5 mls @ 250 mls/hr IV.SIG Q8H [facility] Last Admin: 12/20/17 17:19 Dose: 250 mls/hr Cefazolin Sodium 2,000 mg/ (Sodium Chloride) 100 mls @ 200 mls/hr IV.SIG Q8H [facility] Lactulose (Lactulose Liq) 30 ml PO DAILY PRN PRN Reason: SEVERE CONSITIPATION Metoclopramide HCl (Reglan Inj) 10 mg IV.PUSH Q8H PRN; Protocol PRN Reason: NAUSEA OR VOMITING Last Admin: 12/20/17 18:37 Dose: 10 mg Miscellaneous Information ([facility] Ordered Lab Info) 0 each OTHER ONCE@ [id number] ONE Stop: 12/20/17 21:46 Morphine Sulfate (Morphine Inj) 2 mg IV.PUSH Q2H PRN PRN Reason: PAIN SCALE 6 TO 10 Multivitamins (Theragran) 1 tab PO DAILY [facility] Last Admin: 12/20/17 09:35 Dose: 1 tab Ondansetron HCl (Zofran Inj) 4 mg IV.PUSH Q6H PRN PRN Reason: NAUSEA OR VOMITING Pantoprazole Sodium (Protonix Inj) 40 mg IV.PUSH DAILY [facility] Last Admin: 12/20/17 09:37 Dose: 40 mg Prochlorperazine Edisylate (Compazine Inj) 5 mg IV.PUSH Q4H PRN PRN Reason: BREAKTHROUGH NAUSEA Last Admin: 12/20/17 14:08 Dose: 5 mg Senna/Docusate Sodium (Tracy-Colace) 1 tab PO BID [facility] Last Admin: 12/20/17 09:35 Dose: 1 tab Sennosides (Senokot) 17.2 mg PO Q12H PRN PRN Reason: Moderate Constipation Sodium Chloride (Ns Flush) 2 ml IV.FLUSH BID [facility] Last Admin: 12/20/17 09:46 Dose: 2 ml Sodium Chloride (Ns Flush) 2 ml IV.FLUSH PRN PRN PRN Reason: FLUSH AFTER USING IV ACCESS Thiamine HCl (Vitamin B1) 100 mg PO BID [facility] Last Admin: 12/20/17 09:45 Dose: 100 mg Trazodone HCl (Desyrel) 50 mg PO DAILY [facility] Last Admin: 12/20/17 09:42 Dose: 50 mg Physical Exam Vital signs: Vital Signs 12/19/17 20:35 12/19/17 20:55 12/19/17 21:07 Temperature 98.5 F 98.4 F Pulse Rate 95 H 91 H 90 Respiratory Rate 18 20 Blood Pressure 152/87 H 166/80 H Pulse Oximetry 96 97 12/19/17 21:08 12/19/17 21:55 12/19/17 22:53 Temperature Pulse Rate 88 86 Respiratory Rate 18 18 Blood Pressure 162/89 H 150/86 H Pulse Oximetry 97 98 97 12/19/17 23:55 12/20/17 00:05 12/20/17 00:30 Temperature Pulse Rate 88 87 Respiratory Rate 18 18 Blood Pressure 135/81 Pulse Oximetry 95 99 12/20/17 00:53 12/20/17 01:04 12/20/17 01:55 Temperature 99.0 F Pulse Rate 96 H 88 Respiratory Rate 18 18 Blood Pressure 141/86 H 136/68 Pulse Oximetry 99 98 97 12/20/17 02:55 12/20/17 03:47 12/20/17 04:00 Temperature 97.5 F L Pulse Rate 86 75 88 Respiratory Rate 18 16 16 Blood Pressure 118/69 125/75 Pulse Oximetry 96 12/20/17 07:05 12/20/17 07:19 12/20/17 07:22 Temperature 98.6 F 98.6 F Pulse Rate 88 84 80 Respiratory Rate 16 16 Blood Pressure 132/78 128/78 Pulse Oximetry 98 12/20/17 07:49 12/20/17 07:51 12/20/17 08:00 Temperature Pulse Rate 88 84 Respiratory Rate 21 23 Blood Pressure 131/80 Pulse Oximetry 97 12/20/17 08:35 12/20/17 09:00 12/20/17 10:00 Temperature Pulse Rate 78 92 H 86 Respiratory Rate 22 27 H 25 H Blood Pressure 129/71 123/75 Pulse Oximetry 97 96 96 12/20/17 11:00 12/20/17 12:00 12/20/17 13:00 Temperature Pulse Rate 82 78 82 Respiratory Rate 26 H 24 31 H Blood Pressure 121/74 121/69 124/75 Pulse Oximetry 96 97 97 12/20/17 14:00 12/20/17 14:23 12/20/17 15:00 Temperature Pulse Rate 74 72 90 Respiratory Rate 29 H 20 21 Blood Pressure 128/81 111/66 Pulse Oximetry 97 96 12/20/17 16:00 12/20/17 17:00 12/20/17 18:00 Temperature 98.2 F Pulse Rate 86 96 H 88 Respiratory Rate 21 19 36 H Blood Pressure 116/72 138/82 115/66 Pulse Oximetry 95 96 97 Intake & Output 12/20/17 12/20/17 12/21/17 06:59 18:59 06:59 Intake Total 3400 / 3400 2094.5 / 2094.5 Output Total 450 / 450 Balance 3400 / 3400 1644.5 / 1644.5 Weight 94.3 kg Intake: IV 3400 / 3400 1612.5 / 1612.5 NS Inj 1,000 ML @ 84 mls/hr IV. 1000 / 1000 CONT .[id number] SAMY Rx#: [id number] Cleocin 600 mg/NS Premix 600 mg 50 / 50 In 50 ml @ 100 mls/hr IV.SIG Q8H SAMY Rx#:[id number] Doxy 100 Inj 100 MG In NS Inj 100 / 100 100 / 100 100 ML @ 100 mls/hr IV.SIG Q12H [facility] Rx#:[id number] Zosyn 4.5 GM Premix 4.5 gm In 100 / 100 100 / 100 100 ml @ 200 mls/hr IV.SIG Q6H [facility]Y Rx#:[id number] NS Inj 1,000 ML @ Wide Open IV. 3000 / 3000 SIG BOLUS ONE Rx#:[id number] Vancomycin Inj 1 gm In 200 ml @ 200 / 200 200 mls/hr IV.SIG ONCE ONE Rx# :[id number] Vancomycin Inj 1,250 MG In NS 262.5 / 262.5 Inj 250 ML @ 250 mls/hr IV.SIG Q8HR [facility]Y Rx#:[id number] Oral 482 / 482 Output: Urine 450 / 450 - Constitutional no acute distress - Routine HEENT Exam Eye: Present: PERRL, conjunctivae pink ENT: Present: mucous membranes moist - Routine Neck Exam Present: supple, full ROM - Routine Cardiovascular Exam Present: RRR, S1, S2 - Routine Abdominal Exam Present: soft, normoactive bowel sounds, tenderness - Routine Skin Exam Present: intact, erythema (RIGTH HAND WITH HARD NODULE UNDER THE 4TH KNUCKLE), mottling (RIGTH HAND) - Routine Neurological Exam Present: alert, oriented X3 - Detailed Neurological Exam: Coma Scale Eye Opening: Spontaneous Verbal Response: Oriented Motor Response: Obey commands [place] Coma Scale Total: 15 - Routine Psychiatric Exam Present: normal affect - Additional findings Additional findings: Rt hand with 2 bite maeks and hand inflammed with violaeous hue Assessment and Plan - Assessment (1) Sepsis Code(s): A41.9 - Sepsis, unspecified organism (2) Leukopenia Code(s): D72.819 - Decreased white blood cell count, unspecified Status: Acute (3) Thrombocytopenia Code(s): D69.6 - Thrombocytopenia, unspecified Status: Acute - Plan CONCERN FOR TULEREMA WILL CHANGE ANCEF TO CIPRO AND CONTINUE VANCOMYCIN AND DOXYCYLINE WILL MONITOR FOR NECROSIS THIS CAN CAUSE PNEUMONIA SO CONTINUE TO MONITOR SEEN EXAM WITH DR PALACIOS - Attending Attestation Patient seen and examined on 12/20/17 History reviewed with patient Labs reviewed Assessment: Sepsis Right hand cellulitis H/o rabbit bite Plan: Check blood culture Check Tualremia serology Continue IV Vancomycin IV Cipro IV Doxy (1) Sepsis Qualifiers: Sepsis type: sepsis due to unspecified organism Qualified Code(s): A41.9 - Sepsis, unspecified organism (2) Leukopenia Qualifiers: Leukopenia type: other Qualified Code(s): D72.818 - Other decreased white blood cell count
[2017-12-20] MEDS: Ciprofloxacin 400 MG/200 ML 400 MG/200 ML PIGGYBACK IV.SIG SCH (20:54)
[2017-12-20] MEDS ORDERED: ceFAZolin 2 GM IV IV.SIG SCH (21:00)
[2017-12-20] MEDS ORDERED: Pharmacy Ordered Lab Info OTHER ONE (21:45)
[2017-12-21] MEDS: Sod Chloride 0.9% Inj 1,000 ML IV.CONT SCH ×3 (01:12→21:05)
[2017-12-21] MEDS: Vancomycin Inj 1,250 MG in Sodium Chlor 0.9% Inj 250 ML IV.SIG SCH ×2 (01:14→08:36)
[2017-12-21 05:01] LABS: Baso % (Auto) 0.5 % (0.0-2.0); Eos % (Auto) 0.5 % (0.0-4.0); Hematocrit 38.8 % (39.0-51.0); Hemoglobin 13.4 gm/dL (13.0-17.0); Lymph # (Auto) 0.5 th/mm3 (1.0-4.8); Lymph % (Auto) 20.8 % (9.0-44.0); Mean Corpuscular HGB Conc 34.5 % (32.0-36.0); Mean Corpuscular Hemoglobin 33.1 pg (27.0-34.0); Mean Corpuscular Volume 95.8 fL (80.0-100.0); Mean Platelet Volume 7.4 fL (7.0-11.0); Mono # (Auto) 0.3 th/mm3 (0.0-0.9); Mono % (Auto) 13.5 % (0.0-8.0); Neut # (Auto) 1.8 th/mm3 (1.8-7.7); Neut % (Auto) 64.7 % (16.0-70.0); Platelet Count 31 th/mm3 (150-450); Red Blood Count 4.04 mil/mm3 (4.50-5.90); Red Cell Distribution Width 11.8 % (11.6-17.2); White Blood Count 2.6 th/mm3 (4.0-11.0)
[2017-12-21 05:14] LABS: Chloride 106 meq/L (98-107); Potassium 3.4 meq/L (3.5-5.1); Sodium 142 meq/L (136-145)
[2017-12-21 05:17] LABS: Calcium 7.8 mg/dL (8.5-10.1)
[2017-12-21 05:18] LABS: Activated Partial Thrombo Time 27.7 sec (24.3-30.1); Albumin 3.3 g/dL (3.4-5.0); Anion Gap 13 meq/L (5-15); Blood Urea Nitrogen 14 mg/dL (7-18); Carbon Dioxide 23.1 meq/L (21.0-32.0); Glucose,Random 135 mg/dL (74-106); INR 1.3 Ratio; Magnesium 1.3 mg/dL (1.5-2.5); Prothrombin Time 13.3 sec (9.8-11.6)
[2017-12-21 05:21] LABS: Alanine Aminotransferase 87 U/L (12-78); Aspartate Aminotransferase 167 U/L (15-37); Glomerular Filtration Rate 56 mL/min (>89); Phosphorus 2.8 mg/dL (2.5-4.9)
[2017-12-21 05:22] LABS: Total Protein 7.2 g/dL (6.4-8.2)
[2017-12-21 05:24] LABS: Alkaline Phosphatase 54 U/L (45-117)
[2017-12-21 05:28] LABS: Platelet Morphology Normal (Normal)
[2017-12-21] MEDS: Chlorhexidine Gluconate 2% 1 Pack (2 Cloths) TOPICAL SCH (06:29)
[2017-12-21] MEDS: Pantoprazole Inj 40 MG Vial IV.PUSH SCH (08:35)
[2017-12-21] MEDS: Citalopram 20 MG Tablet PO SCH (08:35)
[2017-12-21] MEDS: Ciprofloxacin 400 MG/200 ML 400 MG/200 ML PIGGYBACK IV.SIG SCH (08:35)
[2017-12-21] MEDS: Folic Acid 1 MG Tablet PO SCH (08:35)
[2017-12-21] MEDS: Senna/Docusate Sodium 8.6/50 MG Tablet PO SCH ×2 (08:36→21:05)
--- NOTE | 2017-12-21 10:50 | P.PN ---
Subjective Interval history: resting comfortably with no distress. swelling of the right hand is better but still with some erythema. no fever, sob but has occasional cough. Physical Exam Vital signs: Vital Signs 12/20/17 11:00 12/20/17 12:00 12/20/17 13:00 Temperature Pulse Rate 82 78 82 Respiratory Rate 26 H 24 31 H Blood Pressure 121/74 121/69 124/75 Pulse Oximetry 96 97 97 12/20/17 14:00 12/20/17 14:23 12/20/17 15:00 Temperature Pulse Rate 74 72 90 Respiratory Rate 29 H 20 21 Blood Pressure 128/81 111/66 Pulse Oximetry 97 96 12/20/17 16:00 12/20/17 17:00 12/20/17 18:00 Temperature 98.2 F Pulse Rate 86 96 H 88 Respiratory Rate 21 19 36 H Blood Pressure 116/72 138/82 115/66 Pulse Oximetry 95 96 97 12/20/17 19:00 12/20/17 19:39 12/20/17 20:00 Temperature 99.1 F Pulse Rate 90 92 H 102 H Respiratory Rate 25 H 18 24 Blood Pressure 126/73 129/72 Pulse Oximetry 95 96 95 12/20/17 21:00 12/20/17 22:00 12/20/17 23:00 Temperature Pulse Rate 96 H 104 H 90 Respiratory Rate 25 H 22 19 Blood Pressure 125/69 139/89 120/74 Pulse Oximetry 12/21/17 00:00 12/21/17 01:00 12/21/17 01:11 Temperature 99.8 F H Pulse Rate 88 88 Respiratory Rate 23 23 22 Blood Pressure 123/72 126/78 Pulse Oximetry 12/21/17 02:00 12/21/17 03:00 12/21/17 04:00 Temperature 99.1 F Pulse Rate 98 H 84 84 Respiratory Rate 24 28 H 23 Blood Pressure 135/77 139/77 135/76 Pulse Oximetry 12/21/17 05:00 12/21/17 06:00 12/21/17 07:00 Temperature Pulse Rate 100 H 82 84 Respiratory Rate 22 25 H 25 H Blood Pressure 134/73 126/79 126/73 Pulse Oximetry 95 12/21/17 07:33 12/21/17 08:00 12/21/17 09:00 Temperature 98.4 F Pulse Rate 89 102 H 88 Respiratory Rate 22 23 27 H Blood Pressure 137/82 140/81 Pulse Oximetry 96 Intake & Output 12/20/17 12/21/17 12/21/17 18:59 06:59 18:59 Intake Total 2094.5 / 2094.5 1420 / 1420 875.0 / 875.0 Output Total 450 / 450 2500 / 2500 Balance 1644.5 / 1644.5 -1080 / -1080 875.0 / 875.0 Weight 95.4 kg Intake: IV 1612.5 / 1612.5 1000 / 1000 875.0 / 875.0 NS Inj 1,000 ML @ 84 mls/hr IV. 1000 / 1000 1000 / 1000 CONT .[id number] [facility] Rx#: [id number] Cipro 400 MG/200 ML Inj 400 mg 200 / 200 In 200 ml @ 200 mls/hr IV.SIG Q12HR [facility] Rx#:[id number] Cleocin 600 mg/NS Premix 600 mg 50 / 50 50 / 50 In 50 ml @ 100 mls/hr IV.SIG Q8H [facility] Rx#:[id number] Doxy 100 Inj 100 MG In NS Inj 100 / 100 100 / 100 100 ML @ 100 mls/hr IV.SIG Q12H [facility] Rx#:[id number] Zosyn 4.5 GM Premix 4.5 gm In 100 / 100 100 ml @ 200 mls/hr IV.SIG Q6H [facility] Rx#:[id number] Vancomycin Inj 1,250 MG In NS 262.5 / 262.5 525.0 / 525.0 Inj 250 ML @ 250 mls/hr IV.SIG Q8H [facility] Rx#:[id number] Oral 482 / 482 420 / 420 Output: Urine 450 / 450 2500 / 2500 Other: Date of Last Bowel Movement 12/19/17 # Bowel Movements 0 - Constitutional no acute distress - Routine Respiratory Exam Present: CTA bilaterally - Routine Cardiovascular Exam Present: RRR - Routine Abdominal Exam Present: soft - Routine Extremities Exam Present: edema Comments: right hand with some swelling. - Routine Skin Exam Present: erythema (of the right hand.) Results - Labs CBC & Chem 7: 12/21/17 04:20 12/21/17 04:20 Laboratory Results - last 24 hr 07/10/18 07/10/18 07/10/18 05:53 05:53 10:00 CBC w Diff WBC RBC Hgb Hct MCV MCH MCHC RDW Plt Count MPV Neut % (Auto) Lymph % (Auto) Pope % (Auto) Eos % (Auto) Baso % (Auto) Neut # (Auto) Lymph # (Auto) Pope # (Auto) Eos # (Auto) Baso # (Auto) WBC Differential Diff Scan Differential Comment Platelet Estimate Platelet Morphology PT INR APTT Sodium Potassium Chloride Carbon Dioxide Anion Gap BUN Creatinine Estimated GFR POC Glucose Random Glucose Lactic Acid Calcium Phosphorus Magnesium Total Bilirubin 2.2 H Direct Bilirubin 0.9 H Indirect Bilirubin 1.3 H AST 202 H ALT 94 H Alkaline Phosphatase 52 Total Protein 7.0 D Albumin 3.3 L D Nasal Screen MRSA (PCR) Not detected Vancomycin Trough Hepatitis A IgM Ab Nonreactive Hep Bs Antigen Nonreactive Hep B Core IgM Ab Nonreactive Hep C IgG Ab Nonreactive 12/20/17 12/20/17 12/20/17 12:16 16:51 21:55 CBC w Diff WBC RBC Hgb Hct MCV MCH MCHC RDW Plt Count MPV Neut % (Auto) Lymph % (Auto) Pope % (Auto) Eos % (Auto) Baso % (Auto) Neut # (Auto) Lymph # (Auto) Pope # (Auto) Eos # (Auto) Baso # (Auto) WBC Differential Diff Scan Differential Comment Platelet Estimate Platelet Morphology PT INR APTT Sodium Potassium Chloride Carbon Dioxide Anion Gap BUN Creatinine Estimated GFR POC Glucose 134 H 109 Random Glucose Lactic Acid Calcium Phosphorus Magnesium Total Bilirubin Direct Bilirubin Indirect Bilirubin AST ALT Alkaline Phosphatase Total Protein Albumin Nasal Screen MRSA (PCR) Vancomycin Trough 16.5 H Hepatitis A IgM Ab Hep Bs Antigen Hep B Core IgM Ab Hep C IgG Ab 12/21/17 12/21/17 12/21/17 04:12 04:20 04:20 CBC w Diff Slide review pending WBC 2.6 L RBC 4.04 L Hgb 13.4 Hct 38.8 L MCV 95.8 MCH 33.1 MCHC 34.5 RDW 11.8 Plt Count 31 L MPV 7.4 Neut % (Auto) 64.7 Lymph % (Auto) 20.8 Pope % (Auto) 13.5 H Eos % (Auto) 0.5 Baso % (Auto) 0.5 Neut # (Auto) 1.8 Lymph # (Auto) 0.5 L Pope # (Auto) 0.3 Eos # (Auto) 0.0 Baso # (Auto) 0.0 WBC Differential . Diff Scan Auto diff confirmed Differential Comment . Platelet Estimate Low L Platelet Morphology Normal PT 13.3 H INR 1.3 APTT 27.7 Sodium Potassium Chloride Carbon Dioxide Anion Gap BUN Creatinine Estimated GFR POC Glucose 149 H Random Glucose Lactic Acid Calcium Phosphorus Magnesium Total Bilirubin Direct Bilirubin Indirect Bilirubin AST ALT Alkaline Phosphatase Total Protein Albumin Nasal Screen MRSA (PCR) Vancomycin Trough Hepatitis A IgM Ab Hep Bs Antigen Hep B Core IgM Ab Hep C IgG Ab 12/21/17 12/21/17 12/21/17 04:20 04:20 07:49 CBC w Diff WBC RBC Hgb Hct MCV MCH MCHC RDW Plt Count MPV Neut % (Auto) Lymph % (Auto) Pope % (Auto) Eos % (Auto) Baso % (Auto) Neut # (Auto) Lymph # (Auto) Pope # (Auto) Eos # (Auto) Baso # (Auto) WBC Differential Diff Scan Differential Comment Platelet Estimate Platelet Morphology PT INR APTT Sodium 142 Potassium 3.4 L Chloride 106 Carbon Dioxide 23.1 Anion Gap 13 BUN 14 Creatinine 1.40 H Estimated GFR 56 L POC Glucose 131 H Random Glucose 135 H Lactic Acid 1.1 Calcium 7.8 L Phosphorus 2.8 Magnesium 1.3 L Total Bilirubin 2.1 H Direct Bilirubin Indirect Bilirubin AST 167 H ALT 87 H Alkaline Phosphatase 54 Total Protein 7.2 Albumin 3.3 L Nasal Screen MRSA (PCR) Vancomycin Trough Hepatitis A IgM Ab Hep Bs Antigen Hep B Core IgM Ab Hep C IgG Ab Microbiology 12/19/17 21:20 Blood - Peripheral Aerobic Blood Culture - Preliminary No growth in 1 day 12/19/17 21:20 Blood - Peripheral Anaerobic Blood Culture - Preliminary No growth in 1 day 12/19/17 21:00 Blood - Peripheral Aerobic Blood Culture - Preliminary No growth in 1 day 12/19/17 21:00 Blood - Peripheral Anaerobic Blood Culture - Preliminary No growth in 1 day Assessment and Plan - Assessment (1) Cellulitis of right hand Code(s): L03.113 - Cellulitis of right upper limb Status: Acute Plan: with rabbit bite; seems to be improving- continue antibiotics per ID- f/u serology. (2) Elevated LFTs Code(s): R94.5 - Abnormal results of liver function studies Status: Acute Plan: improving-hepatitis panel negative.US abdomen pending- GI following- will monitor. (3) Thrombocytopenia Code(s): D69.6 - Thrombocytopenia, unspecified Status: Chronic Plan: likely due to cirrhosis/ splenomegaly- will monitor for active bleeding- - Plan Discharge Planning: pending clinical improvement- pending w/u and ID/GI follow-up/ recommendations.
[2017-12-21] MEDS: traZODone 50 MG Tablet PO SCH (11:57)
--- NOTE | 2017-12-21 15:14 | US ---
EXAM DATE: 12/21/2017 3:00 PM EDT AGE/SEX: 42 years / Male INDICATIONS: Elevated labs. CLINICAL DATA: This is the patient's initial encounter. Patient reports that signs and symptoms have been present for 1 day and indicates a pain score of 2/10. MEDICAL/SURGICAL HISTORY: Pancreatitis. Anxiety. Depression. None. COMPARISON: No prior exams available for comparison. MEASUREMENTS: Liver:__ 17.8 cm. Common Bile Duct:__ 6mm. Right Kidney:__ 12.6 cm. FINDINGS: Liver: Increased echotexture without focal lesion or ductal dilation. Portal Vein: Hepatopedal flow seen in portal vein. Common Duct: No intraluminal mass or stone visualized. Gallbladder: Demonstrates no wall thickening or pericholecystic fluid. No stones visualized. Pancreas: Not well visualized. Right Kidney: Normal echotexture and cortical thickness. No mass or hydronephrosis. Other: None. CONCLUSION: Echogenic liver compatible with fatty infiltration or hepatocellular disease. Mild splenomegaly Nonvisualization of the pancreas Electronically signed by: Dustin Byrd MD 12/21/2017 3:12 PM EDT
--- NOTE | 2017-12-21 18:54 | P.PNID ---
Subjective Remarks: Feels better No fever Breathing ok Rt hand is better Has tremors Antibiotics: Cipro and Doxy Lines: Peripheral IV line Past Medical History: Chronic liver disease Allergies/Adverse Reactions: Allergies No Known Allergies Allergy (Unverified 12/19/17 20:34) Objective Vital Signs 12/20/17 19:00 12/20/17 19:39 12/20/17 20:00 Temperature 99.1 F Pulse Rate 90 92 H 102 H Respiratory Rate 25 H 18 24 Blood Pressure 126/73 129/72 Pulse Oximetry 95 96 95 12/20/17 21:00 12/20/17 22:00 12/20/17 23:00 Temperature Pulse Rate 96 H 104 H 90 Respiratory Rate 25 H 22 19 Blood Pressure 125/69 139/89 120/74 Pulse Oximetry 12/21/17 00:00 12/21/17 01:00 12/21/17 01:11 Temperature 99.8 F H Pulse Rate 88 88 Respiratory Rate 23 23 22 Blood Pressure 123/72 126/78 Pulse Oximetry 12/21/17 02:00 12/21/17 03:00 12/21/17 04:00 Temperature 99.1 F Pulse Rate 98 H 84 84 Respiratory Rate 24 28 H 23 Blood Pressure 135/77 139/77 135/76 Pulse Oximetry 12/21/17 05:00 12/21/17 06:00 12/21/17 07:00 Temperature Pulse Rate 100 H 82 84 Respiratory Rate 22 25 H 25 H Blood Pressure 134/73 126/79 126/73 Pulse Oximetry 95 12/21/17 07:33 12/21/17 08:00 12/21/17 09:00 Temperature 98.4 F Pulse Rate 89 102 H 88 Respiratory Rate 22 23 27 H Blood Pressure 137/82 140/81 Pulse Oximetry 96 96 12/21/17 12:00 12/21/17 13:26 12/21/17 16:04 Temperature 98.4 F 98.4 F Pulse Rate 84 81 96 H Respiratory Rate 27 H 18 29 H Blood Pressure 134/82 137/81 Pulse Oximetry Intake & Output 12/20/17 12/21/17 12/21/17 18:59 06:59 18:59 Intake Total 2094.5 / 2094.5 1420 / 1420 1817.5 / 1817.5 Output Total 450 / 450 2500 / 2500 1250 / 1250 Balance 1644.5 / 1644.5 -1080 / -1080 567.5 / 567.5 Weight 95.4 kg Intake: IV 1612.5 / 1612.5 1000 / 1000 1337.5 / 1337.5 NS Inj 1,000 ML @ 84 mls/hr IV. 1000 / 1000 1000 / 1000 CONT .[id number] BIRD Rx#: [id number] Cipro 400 MG/200 ML Inj 400 mg 400 / 400 In 200 ml @ 200 mls/hr IV.SIG Q12HR BIRD Rx#:[id number] Cleocin 600 mg/NS Premix 600 mg 50 / 50 50 / 50 In 50 ml @ 100 mls/hr IV.SIG Q8H BIRD Rx#:[id number] Doxy 100 Inj 100 MG In NS Inj 100 / 100 100 / 100 100 ML @ 100 mls/hr IV.SIG Q12H BIRD Rx#:[id number] Zosyn 4.5 GM Premix 4.5 gm In 100 / 100 100 ml @ 200 mls/hr IV.SIG Q6H BIRD Rx#:[id number] Vancomycin Inj 1,250 MG In NS 262.5 / 262.5 787.5 / 787.5 Inj 250 ML @ 250 mls/hr IV.SIG Q8H BIRD Rx#:[id number] Oral 482 / 482 420 / 420 480 / 480 Output: Urine 450 / 450 2500 / 2500 1250 / 1250 Other: Date of Last Bowel Movement 12/21/17 # Bowel Movements 0 2 12/19/17 21:20 Blood - Peripheral Aerobic Blood Culture - Preliminary No growth in 2 days 12/19/17 21:20 Blood - Peripheral Anaerobic Blood Culture - Preliminary No growth in 2 days 12/19/17 21:00 Blood - Peripheral Aerobic Blood Culture - Preliminary No growth in 2 days 12/19/17 21:00 Blood - Peripheral Anaerobic Blood Culture - Preliminary No growth in 2 days 12/19/17 22:50 Nasal Wash Influenza Types A,B Antigen - Final Negative for FLU A and B antigen Infection due to influenza A or B cannot be ruled out since the antigen present in the sample may be below the detection limit of the test. Lab - Hematology Results 12/19/17 12/20/17 12/21/17 21:00 05:53 04:20 CBC w Diff Slide review pending Slide review pending Slide review pending WBC 2.8 L 2.3 L 2.6 L RBC 4.75 3.82 L 4.04 L Hgb 15.8 12.7 L D 13.4 Hct 45.2 37.0 L 38.8 L MCV 95.0 96.8 95.8 MCH 33.3 33.1 33.1 MCHC 35.0 34.2 34.5 RDW 12.6 12.3 11.8 Plt Count 44 L 34 L 31 L MPV 8.0 7.2 7.4 Neut % (Auto) 72.5 H 76.5 H 64.7 Lymph % (Auto) 18.3 12.0 20.8 [place] % (Auto) 8.6 H 10.8 H 13.5 H Eos % (Auto) 0.0 0.0 0.5 Baso % (Auto) 0.6 0.7 0.5 Neut # (Auto) 2.1 1.8 1.8 Lymph # (Auto) 0.5 L 0.3 L 0.5 L [place] # (Auto) 0.2 0.2 0.3 Eos # (Auto) 0.0 0.0 0.0 Baso # (Auto) 0.0 0.0 0.0 WBC Differential . . . Diff Scan Auto diff confirmed Auto diff confirmed Auto diff confirmed Differential Comment . . . Platelet Estimate Low L Low L Low L Platelet Morphology Normal Normal Normal RBC Morphology Normal Lab - Chemistry Results 12/19/17 12/19/17 12/19/17 21:00 21:20 23:53 Sodium 144 Potassium 4.0 Chloride 105 Carbon Dioxide 23.0 Anion Gap 16 H BUN 10 Creatinine 0.85 Estimated GFR Greater than 89 POC Glucose Random Glucose 127 H Lactic Acid 8.5 H* 6.2 H* Calcium 8.9 Phosphorus Magnesium 1.8 Total Bilirubin 1.9 H Direct Bilirubin Indirect Bilirubin AST 302 H ALT 130 H Alkaline Phosphatase 74 Ammonia Total Creatine Kinase CK-MB (CK-2) CK-MB (CK-2) % C-Reactive Protein Total Protein 9.0 H Albumin 4.3 Lipase 174 12/20/17 12/20/17 12/20/17 00:40 01:17 05:53 Sodium 143 Potassium 3.4 L Chloride 109 H Carbon Dioxide 21.5 Anion Gap 13 BUN 10 Creatinine 0.65 Estimated GFR Greater than 89 POC Glucose 139 H Random Glucose 150 H Lactic Acid Calcium 7.6 L D Phosphorus 3.2 Magnesium 1.5 Total Bilirubin Direct Bilirubin Indirect Bilirubin AST ALT Alkaline Phosphatase Ammonia Total Creatine Kinase 362 H CK-MB (CK-2) 1.3 CK-MB (CK-2) % 0.4 C-Reactive Protein 1.54 H Total Protein Albumin Lipase 12/20/17 12/20/17 12/20/17 05:53 05:53 05:53 Sodium Potassium Chloride Carbon Dioxide Anion Gap BUN Creatinine Estimated GFR POC Glucose Random Glucose Lactic Acid 1.8 Calcium Phosphorus Magnesium Total Bilirubin 2.2 H Direct Bilirubin 0.9 H Indirect Bilirubin 1.3 H AST 202 H ALT 94 H Alkaline Phosphatase 52 Ammonia 34 H Total Creatine Kinase CK-MB (CK-2) CK-MB (CK-2) % C-Reactive Protein Total Protein 7.0 D Albumin 3.3 L D Lipase 12/20/17 12/20/17 12/21/17 12:16 16:51 04:12 Sodium Potassium Chloride Carbon Dioxide Anion Gap BUN Creatinine Estimated GFR POC Glucose 134 H 109 149 H Random Glucose Lactic Acid Calcium Phosphorus Magnesium Total Bilirubin Direct Bilirubin Indirect Bilirubin AST ALT Alkaline Phosphatase Ammonia Total Creatine Kinase CK-MB (CK-2) CK-MB (CK-2) % C-Reactive Protein Total Protein Albumin Lipase 12/21/17 12/21/17 12/21/17 04:20 04:20 07:49 Sodium 142 Potassium 3.4 L Chloride 106 Carbon Dioxide 23.1 Anion Gap 13 BUN 14 Creatinine 1.40 H Estimated GFR 56 L POC Glucose 131 H Random Glucose 135 H Lactic Acid 1.1 Calcium 7.8 L Phosphorus 2.8 Magnesium 1.3 L Total Bilirubin 2.1 H Direct Bilirubin Indirect Bilirubin AST 167 H ALT 87 H Alkaline Phosphatase 54 Ammonia Total Creatine Kinase CK-MB (CK-2) CK-MB (CK-2) % C-Reactive Protein Total Protein 7.2 Albumin 3.3 L Lipase 12/21/17 17:09 Sodium Potassium Chloride Carbon Dioxide Anion Gap BUN Creatinine Estimated GFR POC Glucose 174 H Random Glucose Lactic Acid Calcium Phosphorus Magnesium Total Bilirubin Direct Bilirubin Indirect Bilirubin AST ALT Alkaline Phosphatase Ammonia Total Creatine Kinase CK-MB (CK-2) CK-MB (CK-2) % C-Reactive Protein Total Protein Albumin Lipase Imaging: ITS Impressions Chest X-Ray 12/19/17 21:08 CONCLUSION: No acute cardiopulmonary process. Hand X-Ray 12/19/17 21:34 CONCLUSION: Soft tissue swelling. Abdomen/Pelvis CT 12/19/17 22:19 CONCLUSION: 1. Diffuse abnormal appearance the liver with hepatic steatosis and suspected cirrhosis. 2. Recanalized lesion at the periumbilical vein consistent with portal hypertension. 3. Splenomegaly likely secondary to the portal hypertension. Liver Ultrasound 12/21/17 00:00 CONCLUSION: Echogenic liver compatible with fatty infiltration or hepatocellular disease. Mild splenomegaly Nonvisualization of the pancreas Physical Exam: Alert, Oriented x 3 No icterus Chest: Clear Heart : S1 S2 shelly; Abdomen: Soft NT BS present Rt Hand: Discoloration and swelling improved No edema feet Assessment and Plan (1) Sepsis Code(s): A41.9 - Sepsis, unspecified organism (2) Leukopenia Status: Acute Code(s): D72.819 - Decreased white blood cell count, unspecified (3) Thrombocytopenia Status: Chronic Code(s): D69.6 - Thrombocytopenia, unspecified (4) Bitten Status: Acute Code(s): T14.8XXA - Other injury of unspecified body region, initial encounter (5) Cellulitis of right hand Status: Acute Code(s): L03.113 - Cellulitis of right upper limb - Plan Blood cultures remain negative Hand is improved Stop IV Vancomycin Continue Cipro and Doxy- changed to PO (1) Sepsis Qualifiers: Sepsis type: sepsis due to unspecified organism Qualified Code(s): A41.9 - Sepsis, unspecified organism (2) Leukopenia Qualifiers: Leukopenia type: other Qualified Code(s): D72.818 - Other decreased white blood cell count
--- NOTE | 2017-12-21 18:57 | P.PNGI ---
Subjective Interval history: Patient sitting in bed seems to be more comfortable, still agitated and shaking for the last 2 days but he said it is doing better now, the swelling of his hand and dark blue discoloration is improving Physical Exam Vital signs: Vital Signs 12/20/17 19:00 12/20/17 19:39 12/20/17 20:00 Temperature 99.1 F Pulse Rate 90 92 H 102 H Respiratory Rate 25 H 18 24 Blood Pressure 126/73 129/72 Pulse Oximetry 95 96 95 12/20/17 21:00 12/20/17 22:00 12/20/17 23:00 Temperature Pulse Rate 96 H 104 H 90 Respiratory Rate 25 H 22 19 Blood Pressure 125/69 139/89 120/74 Pulse Oximetry 12/21/17 00:00 12/21/17 01:00 12/21/17 01:11 Temperature 99.8 F H Pulse Rate 88 88 Respiratory Rate 23 23 22 Blood Pressure 123/72 126/78 Pulse Oximetry 12/21/17 02:00 12/21/17 03:00 12/21/17 04:00 Temperature 99.1 F Pulse Rate 98 H 84 84 Respiratory Rate 24 28 H 23 Blood Pressure 135/77 139/77 135/76 Pulse Oximetry 12/21/17 05:00 12/21/17 06:00 12/21/17 07:00 Temperature Pulse Rate 100 H 82 84 Respiratory Rate 22 25 H 25 H Blood Pressure 134/73 126/79 126/73 Pulse Oximetry 95 12/21/17 07:33 12/21/17 08:00 12/21/17 09:00 Temperature 98.4 F Pulse Rate 89 102 H 88 Respiratory Rate 22 23 27 H Blood Pressure 137/82 140/81 Pulse Oximetry 96 96 12/21/17 12:00 12/21/17 13:26 12/21/17 16:04 Temperature 98.4 F 98.4 F Pulse Rate 84 81 96 H Respiratory Rate 27 H 18 29 H Blood Pressure 134/82 137/81 Pulse Oximetry Intake & Output 12/20/17 12/21/17 12/21/17 18:59 06:59 18:59 Intake Total 2094.5 / 2094.5 1420 / 1420 1817.5 / 1817.5 Output Total 450 / 450 2500 / 2500 1250 / 1250 Balance 1644.5 / 1644.5 -1080 / -1080 567.5 / 567.5 Weight 95.4 kg Intake: IV 1612.5 / 1612.5 1000 / 1000 1337.5 / 1337.5 NS Inj 1,000 ML @ 84 mls/hr IV. 1000 / 1000 1000 / 1000 CONT .[id number] BIRD Rx#: [id number] Cipro 400 MG/200 ML Inj 400 mg 400 / 400 In 200 ml @ 200 mls/hr IV.SIG Q12HR BIRD Rx#:[id number] Cleocin 600 mg/NS Premix 600 mg 50 / 50 50 / 50 In 50 ml @ 100 mls/hr IV.SIG Q8H BIRD Rx#:[id number] Doxy 100 Inj 100 MG In NS Inj 100 / 100 100 / 100 100 ML @ 100 mls/hr IV.SIG Q12H BIRD Rx#:[id number] Zosyn 4.5 GM Premix 4.5 gm In 100 / 100 100 ml @ 200 mls/hr IV.SIG Q6H BIRD Rx#:[id number] Vancomycin Inj 1,250 MG In NS 262.5 / 262.5 787.5 / 787.5 Inj 250 ML @ 250 mls/hr IV.SIG Q8H BIRD Rx#:[id number] Oral 482 / 482 420 / 420 480 / 480 Output: Urine 450 / 450 2500 / 2500 1250 / 1250 Other: Date of Last Bowel Movement 12/21/17 # Bowel Movements 0 2 - Constitutional no acute distress - Routine HEENT Exam Head: Present: normocephalic, atraumatic Eye: Present: EOMI, PERRL ENT: Present: mucous membranes moist - Routine Neck Exam Present: supple, full ROM - Routine Respiratory Exam Present: CTA bilaterally - Routine Cardiovascular Exam Present: RRR, S1, S2 - Routine Abdominal Exam Present: soft Comments: Nondistended nontender no hepatosplenomegaly positive bowel sounds Results - Labs CBC & Chem 7: 12/21/17 04:20 12/21/17 04:20 Laboratory Results - last 24 hr 12/20/17 12/20/17 12/20/17 05:33 10:00 21:55 CBC w Diff WBC RBC Hgb Hct MCV MCH MCHC RDW Plt Count MPV Neut % (Auto) Lymph % (Auto) [place] % (Auto) Eos % (Auto) Baso % (Auto) Neut # (Auto) Lymph # (Auto) [place] # (Auto) Eos # (Auto) Baso # (Auto) WBC Differential Diff Scan Differential Comment Platelet Estimate Platelet Morphology PT INR APTT Sodium Potassium Chloride Carbon Dioxide Anion Gap BUN Creatinine Estimated GFR POC Glucose Random Glucose Lactic Acid Calcium Phosphorus Magnesium Total Bilirubin AST ALT Alkaline Phosphatase Total Protein Albumin Nasal Screen MRSA (PCR) Not detected Vancomycin Trough 16.5 H GILLES Screen Neg 12/21/17 12/21/17 12/21/17 04:12 04:20 04:20 CBC w Diff Slide review pending WBC 2.6 L RBC 4.04 L Hgb 13.4 Hct 38.8 L MCV 95.8 MCH 33.1 MCHC 34.5 RDW 11.8 Plt Count 31 L MPV 7.4 Neut % (Auto) 64.7 Lymph % (Auto) 20.8 [place] % (Auto) 13.5 H Eos % (Auto) 0.5 Baso % (Auto) 0.5 Neut # (Auto) 1.8 Lymph # (Auto) 0.5 L [place] # (Auto) 0.3 Eos # (Auto) 0.0 Baso # (Auto) 0.0 WBC Differential . Diff Scan Auto diff confirmed Differential Comment . Platelet Estimate Low L Platelet Morphology Normal PT 13.3 H INR 1.3 APTT 27.7 Sodium Potassium Chloride Carbon Dioxide Anion Gap BUN Creatinine Estimated GFR POC Glucose 149 H Random Glucose Lactic Acid Calcium Phosphorus Magnesium Total Bilirubin AST ALT Alkaline Phosphatase Total Protein Albumin Nasal Screen MRSA (PCR) Vancomycin Trough GILLES Screen 12/21/17 12/21/17 12/21/17 04:20 04:20 07:49 CBC w Diff WBC RBC Hgb Hct MCV MCH MCHC RDW Plt Count MPV Neut % (Auto) Lymph % (Auto) [place] % (Auto) Eos % (Auto) Baso % (Auto) Neut # (Auto) Lymph # (Auto) [place] # (Auto) Eos # (Auto) Baso # (Auto) WBC Differential Diff Scan Differential Comment Platelet Estimate Platelet Morphology PT INR APTT Sodium 142 Potassium 3.4 L Chloride 106 Carbon Dioxide 23.1 Anion Gap 13 BUN 14 Creatinine 1.40 H Estimated GFR 56 L POC Glucose 131 H Random Glucose 135 H Lactic Acid 1.1 Calcium 7.8 L Phosphorus 2.8 Magnesium 1.3 L Total Bilirubin 2.1 H AST 167 H ALT 87 H Alkaline Phosphatase 54 Total Protein 7.2 Albumin 3.3 L Nasal Screen MRSA (PCR) Vancomycin Trough GILLES Screen 12/21/17 17:09 CBC w Diff WBC RBC Hgb Hct MCV MCH MCHC RDW Plt Count MPV Neut % (Auto) Lymph % (Auto) [place] % (Auto) Eos % (Auto) Baso % (Auto) Neut # (Auto) Lymph # (Auto) [place] # (Auto) Eos # (Auto) Baso # (Auto) WBC Differential Diff Scan Differential Comment Platelet Estimate Platelet Morphology PT INR APTT Sodium Potassium Chloride Carbon Dioxide Anion Gap BUN Creatinine Estimated GFR POC Glucose 174 H Random Glucose Lactic Acid Calcium Phosphorus Magnesium Total Bilirubin AST ALT Alkaline Phosphatase Total Protein Albumin Nasal Screen MRSA (PCR) Vancomycin Trough GILLES Screen Microbiology 12/19/17 21:20 Blood - Peripheral Aerobic Blood Culture - Preliminary No growth in 2 days 12/19/17 21:20 Blood - Peripheral Anaerobic Blood Culture - Preliminary No growth in 2 days 12/19/17 21:00 Blood - Peripheral Aerobic Blood Culture - Preliminary No growth in 2 days 12/19/17 21:00 Blood - Peripheral Anaerobic Blood Culture - Preliminary No growth in 2 days - Imaging Impressions Liver Ultrasound 12/21/17 00:00 CONCLUSION: Echogenic liver compatible with fatty infiltration or hepatocellular disease. 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
[2017-12-21] MEDS ORDERED: traZODone 50 MG Tablet PO SCH (21:00)
[2017-12-21] MEDS: Ciprofloxacin 500 MG Tablet PO SCH (21:04)
[2017-12-21] MEDS ORDERED: Acetaminophen 325 MG Tablet PO ONE (21:53)
[2017-12-22 05:30] LABS: Hematocrit 37.3 % (39.0-51.0); Mean Corpuscular HGB Conc 34.8 % (32.0-36.0); Mean Corpuscular Hemoglobin 33.5 pg (27.0-34.0); Mean Corpuscular Volume 96.2 fL (80.0-100.0); Mean Platelet Volume 7.8 fL (7.0-11.0); Platelet Count 23 th/mm3 (150-450); Red Blood Count 3.88 mil/mm3 (4.50-5.90); Red Cell Distribution Width 12.1 % (11.6-17.2)
[2017-12-22 05:35] LABS: Chloride 109 meq/L (98-107); Potassium 3.3 meq/L (3.5-5.1); Sodium 142 meq/L (136-145)
[2017-12-22 05:38] LABS: Albumin 3.2 g/dL (3.4-5.0); Anion Gap 12 meq/L (5-15); Blood Urea Nitrogen 22 mg/dL (7-18); Calcium 7.8 mg/dL (8.5-10.1); Carbon Dioxide 21.4 meq/L (21.0-32.0); Glucose,Random 158 mg/dL (74-106)
[2017-12-22 05:41] LABS: Alanine Aminotransferase 79 U/L (12-78); Aspartate Aminotransferase 125 U/L (15-37)
[2017-12-22 05:42] LABS: Glomerular Filtration Rate 37 mL/min (>89)
[2017-12-22 05:43] LABS: Total Protein 6.8 g/dL (6.4-8.2)
[2017-12-22] MEDS: Chlorhexidine Gluconate 2% 1 Pack (2 Cloths) TOPICAL SCH (05:43)
[2017-12-22 05:44] LABS: Alkaline Phosphatase 54 U/L (45-117)
[2017-12-22] MEDS: Pantoprazole Inj 40 MG Vial IV.PUSH SCH (10:32)
[2017-12-22] MEDS: Ciprofloxacin 500 MG Tablet PO SCH (10:33)
[2017-12-22] MEDS: Folic Acid 1 MG Tablet PO SCH (10:33)
[2017-12-22] MEDS: Senna/Docusate Sodium 8.6/50 MG Tablet PO SCH (10:35)
[2017-12-22] MEDS: Citalopram 20 MG Tablet PO SCH (10:42)
[2017-12-22] MEDS ORDERED: Magnesium Oxide 400 MG Tablet PO ONE (11:00)
--- NOTE | 2017-12-22 11:07 | P.DS ---
Date of admission: 12/19/17 23:56 Primary care physician: PROVIDER NON STAFF Brief History from admission: 42-year-old male from [place] with a medical history significant for alcohol induced pancreatitis who was bit by her bunny on December 09, 2017 while mowing his lawn when he tried to move it away from under the more. Few days later he started having nausea vomiting and a productive cough. He saw his primary care physician who got a chest x-ray which was read as clear. Subsequently he continued to have episodic nausea vomiting with chills and profuse sweating. He flew to [place] to meet his parents and was at a restaurant on 12/19 that he had another episode of nausea vomiting with profuse chills subsequently and diaphoresis. He tried laying down at home however due to progressively feeling worse came to the ER at [facility] when he was noted to have a fever with elevated LFTs, pancytopenia and lactic acidosis. After obtaining cultures and imaging studies he was initiated on empiric antibiotic coverage for presumed sepsis. Patient was accepted for admission by critical care medicine service. When I evaluated the patient following his arrival to the ICU he was resting in bed on room air and did not appear to be in any acute distress. She denied any chest pain shortness of breath or abdominal pain currently. He denied any diarrhea rectal bleeding melena. He did have profuse sweating in the ER earlier prior to his arrival to the ICU. He did notice redness and swelling over dorsum of his right hand at the site of the rabbit bite. Past surgical history: Strabismus, nose surgery Past medical history: Depression, anxiety. Prior history of alcohol abuse however quit about a year and a half ago. Previous episodes of pancreatitis related to alcohol use. DS: Diagnosis - Discharge Diagnosis (1) Sepsis Status: Acute (2) Leukopenia Status: Acute (3) Cellulitis of right hand Status: Acute DS: Summary Hospital Course: This patient is a 42-year-old gentleman was bitten by a he did have some cellulitis and sepsis. He was seen by infectious disease and given a good regimen for treatment. He also was seen by panel beater due to elevated LFTs which she has had for a while due to history of alcoholism and chronic pancreatitis. No further workup was indicated for this issue in the hospital. Patient did better and was discharged back home to continue his antibiotics - Time Spent with Patient Total time spent providing and/or coordinating discharge services: Less than 30 minutes - Quality: VTE Deep Vein Thrombosis/Pulmonary Embolism Present on Admission: No Exam Vital signs: Vital Signs 12/21/17 12:00 12/21/17 13:26 12/21/17 16:04 Temperature 98.4 F 98.4 F Pulse Rate 84 81 96 H Respiratory Rate 27 H 18 29 H Blood Pressure 134/82 137/81 Pulse Oximetry 12/21/17 20:00 12/21/17 20:20 12/21/17 21:00 Temperature 100.2 F H Pulse Rate 86 91 H 98 H Respiratory Rate 29 H 20 22 Blood Pressure 144/87 H 147/84 H Pulse Oximetry 98 96 98 12/21/17 23:51 12/22/17 00:00 12/22/17 01:00 Temperature 99.0 F Pulse Rate 90 86 Respiratory Rate 12 19 20 Blood Pressure 128/79 116/68 Pulse Oximetry 97 97 12/22/17 04:00 12/22/17 07:00 12/22/17 07:48 Temperature 98.8 F Pulse Rate 88 84 87 Respiratory Rate 26 H 25 H 20 Blood Pressure 126/84 Pulse Oximetry 98 97 12/22/17 08:00 Temperature Pulse Rate 94 H Respiratory Rate 30 H Blood Pressure 148/90 H Pulse Oximetry 95 Intake & Output 12/21/17 12/22/17 12/22/17 18:59 06:59 18:59 Intake Total 1817.5 / 1817.5 1000 / 1000 290 / 290 Output Total 1250 / 1250 1000 / 1000 Balance 567.5 / 567.5 0 / 0 290 / 290 Weight 96.3 kg Intake: IV 1337.5 / 1337.5 1000 / 1000 NS Inj 1,000 ML @ 84 mls/hr IV. 1000 / 1000 CONT .[id number] BIRD Rx#: [id number] Cipro 400 MG/200 ML Inj 400 mg 400 / 400 In 200 ml @ 200 mls/hr IV.SIG Q12HR BIRD Rx#:[id number] Cleocin 600 mg/NS Premix 600 mg 50 / 50 In 50 ml @ 100 mls/hr IV.SIG Q8H BIRD Rx#:[id number] Doxy 100 Inj 100 MG In NS Inj 100 / 100 100 ML @ 100 mls/hr IV.SIG Q12H BIRD Rx#:[id number] Vancomycin Inj 1,250 MG In NS 787.5 / 787.5 Inj 250 ML @ 250 mls/hr IV.SIG Q8H BIRD Rx#:[id number] Oral 480 / 480 240 / 240 Oral Supplement 50 / 50 Output: Urine 1250 / 1250 1000 / 1000 Other: Date of Last Bowel Movement 12/21/17 12/21/17 12/22/17 # Bowel Movements 2 Narrative: GENERAL: Patient calm resting and without complaints SKIN: Multiple telangiectasias but otherwise warm and dry. No rashes or ecchymotic injuries EYES: Pupils equal and round. No scleral icterus. No injection or drainage. ENT: External ear exam normal. No acute nasal bleeding or discharge. Mucous membranes pink and moist. CARDIOVASCULAR: Regular rate and rhythm. No murmurs gallops or rubs appreciated RESPIRATORY: Good air flow and effort without accessory muscle use. Clear to auscultation. Breath sounds equal bilaterally. GASTROINTESTINAL: Abdomen soft, non-tender, nondistended. Hepatic and splenic margins not palpable. MUSCULOSKELETAL: Right hand with lateral ecchymoses and minimal edema, improved per patient, other 3 extremities without clubbing, cyanosis, or edema. No obvious deformities. NEUROLOGICAL: Awake and alert. No obvious cranial nerve deficits. Motor grossly within normal limits. Five out of 5 muscle strength in the arms and legs. Normal speech. Results Procedures completed during hospitalization: abd Ultrasound consistent with fatty liver Labs on day of discharge: Labs from last 24 hours 12/22/17 12/22/17 12/21/17 04:27 04:27 17:09 WBC 3.0 L RBC 3.88 L Hgb 13.0 Hct 37.3 L MCV 96.2 MCH 33.5 MCHC 34.8 RDW 12.1 Plt Count 23 L MPV 7.8 Sodium 142 Potassium 3.3 L Chloride 109 H Carbon Dioxide 21.4 Anion Gap 12 BUN 22 H Creatinine 2.00 H Estimated GFR 37 L POC Glucose 174 H Random Glucose 158 H Calcium 7.8 L Total Bilirubin 2.1 H AST 125 H ALT 79 H Alkaline Phosphatase 54 Total Protein 6.8 Albumin 3.2 L GILLES Screen 12/20/17 05:33 WBC RBC Hgb Hct MCV MCH MCHC RDW Plt Count MPV Sodium Potassium Chloride Carbon Dioxide Anion Gap BUN Creatinine Estimated GFR POC Glucose Random Glucose Calcium Total Bilirubin AST ALT Alkaline Phosphatase Total Protein Albumin GILLES Screen Neg Preliminary micro results at discharge 12/19/17 21:20 Aerobic Blood Culture - Preliminary Blood - Peripheral No growth in 3 days Anaerobic Blood Culture - Preliminary No growth in 3 days 12/19/17 21:00 Aerobic Blood Culture - Preliminary Blood - Peripheral No growth in 3 days Anaerobic Blood Culture - Preliminary No growth in 3 days - Impressions ITS Impressions Chest X-Ray 12/19/17 21:08 CONCLUSION: No acute cardiopulmonary process. Hand X-Ray 12/19/17 21:34 CONCLUSION: Soft tissue swelling. Abdomen/Pelvis CT 12/19/17 22:19 CONCLUSION: 1. Diffuse abnormal appearance the liver with hepatic steatosis and suspected cirrhosis. 2. Recanalized lesion at the periumbilical vein consistent with portal hypertension. 3. Splenomegaly likely secondary to the portal hypertension. Liver Ultrasound 12/21/17 00:00 CONCLUSION: Echogenic liver compatible with fatty infiltration or hepatocellular disease. Mild splenomegaly Nonvisualization of the pancreas Discharge Plan - Discharge Disposition Patient Disposition: Discharge Home - Discharge Condition Condition: Stable - Discharge Details Anticipated Discharge Date: 12/22/17 - Physicians Team Primary Care Provider: NON STAFF,PROVIDER Attending Provider: Anuja Dixon Other Providers: Jovita Vazquez MD ; Stacy Tabor MD
[2017-12-24 09:51] LABS: Lyme Disease DNA (PCR) NOT DETECTED
[2017-12-24 19:54] LABS: Lyme Ab 18KD IgG WB NON-REACTIVE; Lyme Ab 23KD IgG WB NON-REACTIVE; Lyme Ab 23KD IgM WB REACTIVE; Lyme Ab 28KD IgG WB NON-REACTIVE; Lyme Ab 30KD IgG WB NON-REACTIVE; Lyme Ab 39KD IgG WB NON-REACTIVE; Lyme Ab 39KD IgM WB NON-REACTIVE; Lyme Ab 41KD IgG WB NON-REACTIVE; Lyme Ab 41KD IgM WB REACTIVE; Lyme Ab 45KD IgG WB NON-REACTIVE; Lyme Ab 58KD IgG WB NON-REACTIVE; Lyme Ab 66KD IgG WB NON-REACTIVE; Lyme Ab 93KD IgG WB NON-REACTIVE
== END 2017-12-22 17:02 | disposition home or self-care (01) ==
LOC: PHED 19:54 → PHEDA 23:56 → PHICU 12-20 08:00 → PHEDA 12-20 08:08
PROVIDERS: ADMIT Hospitalist; ATTEND Hospitalist